=== PATIENT | male | born 1965 | race Caucasian/White ===

== ENCOUNTER → 2018-11-12 15:13 | Outpatient (CLI) | payer OTHER, SELFPAY ==
--- NOTE | 2018-11-12 15:27 | RAD_ITS ---
HISTORY: SOBShort of Breath/DyspneaRAD - Chest EXAM: XR Chest 2 Views: COMPARISON: None FINDINGS: # of images incl. paperwork: 2 Lungs are clear. Heart is not enlarged. Bones are normal. Pulmonary vascularity is distinct. No effusions. RAD/Chest PA and Lateral IMPRESSION: Normal. at 0023 Reported and signed by: Moy Sexton MD Electronically Signed: Moy Sexton MD at 0:22 EDT Tel , Service support ,
[2018-11-12 17:42] LABS: Absolute Lymphocyte Count 1.36 X10^3/ul (0.83-4.51); Absolute Neutrophil Count 2.3 X10^3/uL (2.0-7.7); Basophil# 0.02 X10^3/uL; Basophil% 0.5 % (0-1); Eosinophil# 0.15 X10^3/uL; Eosinophils% 3.5 % (0-5); Hematocrit 45.6 % (40-54); Hemoglobin 15.6 g/dl (13.0-16.5); Lymphocyte # 1.36 X10^3/ul (4.0); Lymphocyte % 31.5 % (19-41); Mean Corp Hgb Conc 34.2 g/gl (32-36); Mean Corpuscular Hgb 29.6 pg (27.0-32.0); Mean Corpuscular Volume 86.5 fL (80-94); Mean Platelet Vol. 9.6 fl (6.2-12.0); Monocyte# 0.45 X10^3/uL; Monocyte% 10.4 % (0-10); Neutrophil # 2.31 X10^3/uL (2.7-7.7); Neutrophil % 53.4 % (47-70); Platelet Count 175 K/mm3 (150-450); RBC Distribution Width CV 13.3 % (11.6-14.6); RBC Distribution Width SD 41.2 fl (35.1-43.9); Red Blood Count 5.27 M/mm3 (4.6-6.2); White Blood Count 4.3 K/mm3 (4.4-11.0)
[2018-11-12 17:50] LABS: POSITIVE COUNT NO; POSITIVE DIFFERENTIAL NO; POSITIVE MORPHOLOGY NO
[2018-11-12 17:56] LABS: Vitamin B12 850 pg/mL (211-911)
[2018-11-12 17:58] LABS: ALB/GLOB Ratio 1.1 RATIO (0.9-2.4); AST(SGOT) 34 U/L (15-37); Alanine Aminotransfer ALT/SGPT 61 U/L (16-61); Albumin, Serum 3.9 g/dL (3.2-5.0); Alkaline Phosphatase 81 U/L (45-117); Anion Gap 7 (5-15); BUN 12 mg/dL (7-18); BUN/Creat Ratio 11.9 RATIO (10-20); Calcium,Total 8.9 mg/dL (8.5-10.1); Chloride 108 mmol/L (98-107); Cholesterol 211 mg/dL (200); Creatinine, Serum 1.01 mg/dL (0.70-1.30); EST Glomerular Filtration Rate 82 mL/min (>60); Est Glom Filt Rate - Afr Amer 99 mL/min (>60); Globulin 3.5 g/dL (2.2-4.2); Glucose 87 mg/dL (74-106); High Density Lipoprotein 34 mg/dL; Potassium 3.7 mmol/L (3.5-5.1); Protein, Total 7.4 g/dL (6.4-8.2); Sodium Level 140 mmol/L (136-145); Thyroid Stim Hormone (TSH) 3.26 uIU/mL (0.358-3.74); Triglycerides 251 mg/dL; Very Low Density Lipoprotein 50 mg/dL (5-40)
== END ==
PROVIDERS: Family Provider Family Medicine; PCP Family Medicine; Referring Provider Family Medicine; Visit Provider Family Medicine
DX: R06.02 Shortness of breath (principal); I10 Essential (primary) hypertension; R53.83 Other fatigue; Z82.49 Family history of ischemic heart disease and other diseases of the circulatory system
CPT/HCPCS: 36415; 71046; 80053; 80061; 82306; 82607; 84443; 85025

== ENCOUNTER → 2018-11-20 11:16 | Outpatient (CLI) | payer OTHER, SELFPAY ==
--- NOTE | 2018-11-20 13:49 | STRESSREP ---
Stress Test Report Date: 11/20/2018 Procedure: Exercise tolerance test Indications: Shortness of breath Consent: Per the patient Procedure: The patient exercised on a Otis protocol for 7 minutes achieving a peak heart rate of 157 bpm (95 % predicted maximal heart rate) with a peak blood pressure 220/90 mmHg and a peak MET capacity of approximately 8.5 mET's. The baseline ECG demonstrated normal sinus rhythm, T wave inversions in leads III, aVF, V5, V6. The peak exercise ECG demonstrated no significant ST-T changes. [There were no cardiac dysrhythmias pretest, during exercise, or recovery]. The functional capacity was considered normal for age. The patient had no complaint of chest discomfort during exercise or recovery. The examination was discontinued secondary to shortness of breath. Impression: 1. Technically adequate (percent predicted maximal heart rate greater than 85%) exercise tolerance test 2. Peak exercise ECG with no significant exercise-induced EKG changes of ischemia. Patient did not have exercise induced chest pain. 3. [There were no cardiac dysrhythmias during exercise or recovery] This note was generated with [employer] software. It may contain incorrect words, spelling, and punctuation that were not noted in checking the note before signing.
== END ==
PROVIDERS: Family Provider Family Medicine; PCP Family Medicine; Referring Provider Family Medicine; Visit Provider Family Medicine
DX: R06.02 Shortness of breath (principal)
CPT/HCPCS: 93017

== ENCOUNTER → 2018-12-11 11:43 | Outpatient (CLI) | payer OTHER, SELFPAY ==
--- NOTE | 2018-12-11 11:47 | ECHOD_ITS ---
Reason For Study: SOB, fatigue Procedure This was a 2D Doppler, Color Flow transthoracic echocardiogram. Exam performed in department. Left Ventricle Normal LV size. Concentric left ventricular hypertrophy. The estimated ejection fraction is 60 %. No evidence for diastolic dysfunction. No regional wall motion abnormalities noted. Right Ventricle Normal RV size. Normal systolic function. Atria Normal left atrium. Normal right atrium. Mitral Valve There is no mitral valve stenosis. No mitral valve insufficiency. Tricuspid Valve There is no tricuspid stenosis. No tricuspid valve insufficiency. Unable to estimate RV systolic pressure due to insufficient tricuspid regurgitant envelope. Aortic Valve Trisinus/trileaflet aortic valve. There is no aortic stenosis. No aortic valve insufficiency. Pulmonic Valve There is no pulmonic valvular stenosis. No pulmonic valve insufficiency. Great Vessels Normal aortic root. Pericardium/Pleural No pericardial effusion. MMode/2D Measurements & Calculations LVIDd: 3.7 cm IVSd: 1.2 cm Ao root diam: 3.2 cm LVIDs: 2.1 cm LVPWd: 1.3 cm RVDd: 3.7 cm FS: 43.0 % LAV(MOD-bp): 37.9 ml LVAd ap4: 34.1 cm2 SV(MOD-sp4): 73.4 ml LAV(MOD-bp) Indexed: 15.9 ml/m2 EDV(MOD-sp4): 116.1 ml LAV(MOD-sp2): 33.7 ml EDV(sp4-el): 119.1 ml LAV(MOD-sp4): 42.7 ml LVAs ap4: 19.2 cm2 ESV(MOD-sp4): 42.7 ml ESV(sp4-el): 43.1 ml EF(MOD-sp4): 63.2 % EF(sp4-el): 63.8 % SV(sp4-el): 76.0 ml LA A4 area: 16.0 cm2 LA dimension(2D): 3.7 cm RA A4 area: 12.0 cm2 Doppler Measurements & Calculations MV E max drew: 52.9 cm/sec Lat Peak E' Drew: 4.4 cm/sec Med Peak E' Drew: 5.4 cm/sec MV A max drew: 69.5 cm/sec E/E' lat: 12.0 E/E' med: 9.7 MV E/A: 0.76 Ao V2 max: 113.0 cm/sec LV V1 max: 110.1 cm/sec PA V2 max: 92.0 cm/sec Ao max P.1 mmHg LV V1 max P.9 mmHg Interpretation Summary The estimated ejection fraction is 60 %. No evidence for diastolic dysfunction. Ordering Physician: Rodríguez Avery Referring Physician: Rodríguez Avery Performed By: Ying Kelly, ENOC
== END ==
PROVIDERS: Family Provider Family Medicine; PCP Family Medicine; Referring Provider Family Medicine; Visit Provider Family Medicine
DX: R06.02 Shortness of breath (principal)
CPT/HCPCS: 93306

== ENCOUNTER → 2019-02-18 14:29 | Outpatient (CLI) | payer OTHER, SELFPAY | PROVIDERS: Family Provider Family Medicine; PCP Family Medicine; Referring Provider Family Medicine; Visit Provider Family Medicine | DX: E55.9 Vitamin D deficiency, unspecified (principal) | CPT/HCPCS: 36415; 82306 ==

== ENCOUNTER 2019-06-15 16:24 | Emergency (ER) | payer OTHER, SELFPAY ==
[2019-06-15 16:24] VITALS: BP 157/97; PULSE 84; RESP 16; TEMP 36.2; O2SAT 96
[2019-06-15 16:25] VITALS: BP 157/97; PULSE 84; RESP 18; TEMP 36.2; O2SAT 96; BMI 43.7
--- NOTE | 2019-06-15 17:33 | MRI_ITS ---
STUDY: MRI BRAIN WITH AND WITHOUT CONTRAST REASON FOR EXAM: Male, 53 years old. HTN, PAPILLEDEMA,DURAL VENOUS THROMBUS -- loss of vision both eyes rt and gt; lt x 3 weeks TECHNIQUE: Standardized multiplanar fat and water weighted pulse sequences were obtained. IV Yes YES was administered for the contrast portion of the examination. COMPARISON: None. FINDINGS: A round, lobular, T2 hypointense, and intensely enhancing extra-axial mass is present in the midline floor of the anterior cranial fossa. It measures 4.4 cm anteroposterior by 3.9 cm transverse by 3.7 cm craniocaudal. It extends upwards through the anterior interhemispheric fissure. It exerts mass effect on both frontal lobes. It may extend through the cribriform plate. There is severe associated vasogenic edema radiating through the anterior halves of both cerebral hemispheres, and into the bilateral basal ganglia and internal capsules. There is severe compression of the frontal horns of the lateral ventricles. Location and signal characteristics are most consistent with a meningioma. The extent of edema in the cerebral hemispheres implies an aggressive/atypical lesion. Normal sella turcica, pituitary gland, infundibular stalk, optic chiasm and hypothalamus. Normal tectal plate and pineal gland. Normal midbrain, danny and medulla. Normal cerebellum. Normal basal cisterns. Normal bilateral temporal bones. Normal bilateral internal auditory canals. No demonstrated orbital abnormality, within the constraints of a routine brain study. Normal visualized paranasal sinuses. Normal calvarium and skull base. Normal visualized soft tissue structures. Normal visualized upper cervical spine. MRI/Brain W/WO Contrast IMPRESSION: Lobular extra-axial mass along the midline floor of the anterior cranial fossa, extending between the cerebral hemispheres and exerting mass effect on adjacent structures as described above. The lesion may extend through the cribriform plate. Severe associated vasogenic edema involving the anterior aspects of both cerebral hemispheres with compression of the frontal horns of the lateral ventricles. Overall, findings favor neoplasm such as meningioma. The extent of edema implies an aggressive/atypical lesion. Neurosurgery consultation is needed. N.B. : The above information has been verbally conveyed by Felipe Flores MD to Dr. Barbara Galvin MD, on 06/15/2019 19:34:28 (ET). Electronically Signed: Felipe Flores MD at 19:36 EST Tel , Service support ,
--- NOTE | 2019-06-15 17:33 | EKG12_ITS ---
Test Reason : Blood Pressure : / mmHG Vent. Rate : 062 BPM Atrial Rate : 062 BPM P-R Int : 166 ms QRS Dur : 102 ms QT Int : 398 ms P-R-T Axes : 034 -38 004 degrees QTc Int : 403 ms Normal sinus rhythm Left axis deviation Moderate voltage criteria for LVH, may be normal variant Poor R- wave Progression Abnormal ECG Confirmed by ROMAIN WINSLOW, MAGDY ([id number]), editorial clerk IKE GORE ([id number]) on 06/17/2019 9:56:48 AM Referred By: ALEX Confirmed By:MAGDY HOYOS MD
--- NOTE | 2019-06-15 17:34 | MRI_ITS ---
STUDY: EXAMINATION - MRV BRAIN WITHOUT CONTRAST REASON FOR EXAM: Male, 53 years old. HTN, PAPILLEDEMA,DURAL VENOUS THROMBUS -- loss of vision both eyes rt and amp;gt; lt x 3 weeks TECHNIQUE: 3D [id number]-ch-[id number] (TOF) imaging was performed in a 1.5 maico MRI scanner. COMPARISON: None. FINDINGS: Normal flow within the superior sagittal sinus. Normal flow within the paired internal cerebral veins, vein of Tej and straight sinus. Normal flow within the bilateral transverse and sigmoid sinuses. Normal flow within the bilateral jugular bulbs. MRI/MRV Head Without Contrast IMPRESSION: Normal unenhanced MRV of the brain. Electronically Signed: Felipe Flores MD at 19:39 EST Tel , Service support ,
--- NOTE | 2019-06-15 17:37 | ED.VIS.GEN ---
History of Present Illness Chief Complaint: Vision Prob Informant: Patient Onset: Weeks - 3 weeks Narrative: Patient was sent from ophthalmology office for further testing. Patient presented to them with a 3-week history of intermittent blurry vision from his right eye. He states when sitting at rest he has no difficulty. Approximate 20 seconds after getting up he will have blackout of his vision in the right periphery. After about 10 or 15 seconds it seems to resolve. He is also had intermittent headaches and his blood pressure has been quite elevated when he checks it at home. The cash analyst reportedly found bilateral papilledema with hemorrhages on today's exam. - Past Medical History (1) Hypertension Status: Chronic Past Medical History - Allergies and Home Meds Allergies/Adverse Reactions: Allergies No Known Allergies Allergy (Verified 06/15/19 16:27) Primary Care Physician: Rodríguez Avery MD [Primary Care Provider] - Doctors: Dr Evans, ophthalmology Prior records reviewed: Yes Smoking Status: Current every day smoker Review of Systems General: Denies: Chills, Fever Eyes: Reports: Visual changes - right ENT: Denies: Bilateral ear pain Cardiovascular: Denies: Chest pain Respiratory: Denies: Dyspnea, Cough Gastrointestinal: Denies: Abdominal pain, Nausea, Vomiting, Diarrhea Genitourinary: Denies: Dysuria Musculoskeletal: Denies: Extremity Pain Skin: Denies: Rash Neurological: Reports: Headache - Intermittent headaches. Denies: Weakness, Parasthesia Allergy: Denies: Uticaria Physical Exam Vital Signs/Narrative: Vital Signs Temp Pulse Resp BP Pulse Ox 06/15/19 16:25 97.2 F L 84 18 157/97 H 96 06/15/19 16:24 97.2 F L 84 16 157/97 H 96 Inital Vital Signs reviewed: Yes General: Well nourished, Well developed Head: Normocephalic Eyes: - - Pupils are currently dilated secondary to ophthalmology exam just prior to arrival ENT: Moist mucous membranes Neck: Supple Cardiovascular: Regular rate, Regular rhythm Respiratory: No distress, CTA bilaterally Abdomen: Soft, Nontender Skin: Normal color Neurological: Alert, Oriented x3, Normal Strength, Normal Sensation Psychological: Normal affect Diagnostic/Tx/Re-eval Impressions Brain MRI 06/15/19 17:34 IMPRESSION: Normal unenhanced MRV of the brain. Electronically Signed: Felipe Flores MD at 19:39 EST Tel , Service support , 06/15/19 17:33 Brain W/WO Contrast [MRI] Stat IMPRESSION: Lobular extra-axial mass along the midline floor of the anterior cranial fossa, extending between the cerebral hemispheres and exerting mass effect on adjacent structures as described above. The lesion may extend through the cribriform plate. Severe associated vasogenic edema involving the anterior aspects of both cerebral hemispheres with compression of the frontal horns of the lateral ventricles. Overall, findings favor neoplasm such as meningioma. The extent of edema implies an aggressive/atypical lesion. Neurosurgery consultation is needed. Laboratory Results 06/15/19 06/15/19 06/15/19 17:55 18:00 18:00 WBC 5.2 RBC 5.34 Hgb 16.1 Hct 47.9 MCV 89.7 MCH 30.1 MCHC 33.6 RDW Std Deviation 42.1 RDW Coeff of Lori 12.9 Plt Count 177 MPV 9.5 Immature Gran % (Auto) 0.400 Neut % (Auto) 52.3 Lymph % (Auto) 28.9 [place] % (Auto) 14.5 H Eos % (Auto) 2.9 Baso % (Auto) 1.0 Absolute Neuts (auto) 2.7 Absolute Lymphs (auto) 1.50 Nucleated RBC % 0 Sodium 142 Potassium 3.8 Chloride 110 H Carbon Dioxide 27.0 Anion Gap 5 BUN 16 Creatinine 1.00 Estim Creat Clear Calc 83.47 Est GFR (MDRD) Af Amer 100 Est GFR (MDRD) Non-Af 82 BUN/Creatinine Ratio 16.0 Glucose 78 Calcium 9.3 Urine Color Yellow Urine Clarity Clear Urine pH 5.0 Ur Specific [place] 1.025 Urine Protein Negative Urine Glucose (UA) Normal Urine Ketones Negative Urine Occult Blood Negative Urine Nitrite Negative Urine Bilirubin Negative Urine Urobilinogen Normal Ur Leukocyte Esterase Negative Urine RBC 0 SEEN Urine WBC 0 SEEN Ur Squamous Epith Cells 0 SEEN Calcium Oxalate Crystal 1+ Urine Bacteria 0 SEEN Urine Mucus 3+ - Medical Decision Making Test results are discussed with the patient. I did describe this mass and significant surrounding edema. I recommend transfer to a tertiary center with neurosurgery availability. I spoke with the hospitalist at [facility] in transfer line had spoken with neurosurgery. Patient is given dose of Decadron and Keppra and will be transferred to [facility] for further treatment. ED Disposition - Plan for ED Patient: Disposition: [facility] Diagnosis: Brain tumor Referrals: Rodríguez Avery MD [Primary Care Provider] -
[2019-06-15 18:10] LABS: Bacteria 0 SEEN /hpf (None Seen); Red Blood Cells-Urine 0 SEEN /hpf (0-5); Squamous Epithelial Cells - UA 0 SEEN /hpf (0-5); White Blood Cells 0 SEEN /hpf (0-5)
[2019-06-15 18:25] LABS: Absolute Neutrophil Count 2.7 X10^3/uL (2.0-7.7); Basophil# 0.05 X10^3/uL; Eosinophil# 0.15 X10^3/uL; Eosinophils% 2.9 % (0-5); Hematocrit 47.9 % (40-54); Hemoglobin 16.1 g/dL (13.0-16.5); Lymphocyte % 28.9 % (19-41); Mean Corp Hgb Conc 33.6 g/dL (32-36); Mean Corpuscular Hgb 30.1 pg (27.0-32.0); Mean Corpuscular Volume 89.7 fL (80-94); Mean Platelet Vol. 9.5 fl (6.2-12.0); Monocyte# 0.75 X10^3/uL; Monocyte% 14.5 % (0-10); NRBC Flagged by Analyzer 0 % (0-5); Neutrophil # 2.72 X10^3/uL (2.7-7.7); Neutrophil % 52.3 % (47-70); Platelet Count 177 K/mm3 (150-450); RBC Distribution Width CV 12.9 % (11.6-14.6); RBC Distribution Width SD 42.1 fl (35.1-43.9); Red Blood Count 5.34 M/mm3 (4.6-6.2); White Blood Count 5.2 K/mm3 (4.4-11.0)
[2019-06-15 18:31] LABS: Color, Urine Yellow (Yellow); Glucose, Dipstick Normal (Normal); Ketone-Dipstick Negative (Negative); Leukocyte Esterase-Dipstick Negative /ul (Negative); Nitrite-Dipstick Negative (Negative); Occult Blood-Urine Negative /ul (Negative); Protein-Dipstick Negative (Negative); Specific Gravity, Urine 1.025 (1.002-1.030); Urine Bilirubin Dipstick Negative (Negative); Urine Clarity Clear (Clear); Urine Urobilinogen Normal (Normal)
[2019-06-15 18:42] LABS: Anion Gap 5 (5-15); BUN 16 mg/dL (7-18); Calcium,Total 9.3 mg/dL (8.5-10.1); Chloride 110 mmol/L (98-107); EST Glomerular Filtration Rate 82 mL/min (>60); Est Glom Filt Rate - Afr Amer 100 mL/min (>60); Estimated Creatinine Clearance 83.47 ml/min; Glucose 78 mg/dL (74-106); Potassium 3.8 mmol/L (3.5-5.1); Sodium Level 142 mmol/L (136-145)
[2019-06-15 19:04] LABS: Calcium Oxalate Crystals Ur 1+ /hpf (<or=2+)
[2019-06-15 19:06] LABS: Mucous, Urine 3+ /hpf (<or=2+)
[2019-06-15 20:25] VITALS: BP 153/92; PULSE 64; RESP 14; TEMP 36.4; O2SAT 97
[2019-06-15] MEDS: dexAMETHasone 10 MG/ML Vial IV (21:36)
[2019-06-15] MEDS: levETIRAcetam IV 1,000 MG/100 ML BAG 400 MG IV (21:38)
[2019-06-15 23:16] VITALS: BP 148/95; PULSE 56; RESP 20; O2SAT 93
--- NOTE | 2019-06-15 23:17 | ED.RN ---
PATIENT DENIES ANY NEEDS AND DOESN'T HAVE ANY HEADACHE PAIN CURRENTLY.
--- NOTE | 2019-06-15 23:32 | ED.RN ---
VISUAL ACUITY NOT NEEDED PER DR. JOHNSON.
[2019-06-15 23:53] VITALS: BP 148/90; PULSE 57; RESP 20; O2SAT 93
== END 2019-06-16 00:05 | disposition short-term general hospital (02) ==
PROVIDERS: Emergency Provider Emergency Medicine; PCP Family Medicine
DX: D49.6 Neoplasm of unspecified behavior of brain (principal); I10 Essential (primary) hypertension; F17.200 Nicotine dependence, unspecified, uncomplicated
CPT/HCPCS: 70544; 70553; 80048; 81001; 85025; 93005; 96365; 96375; 99285; A9575; J7050; A4216

== ENCOUNTER 2019-06-26 18:15 | Inpatient (IN) | payer OTHER, SELFPAY ==
[2019-06-26 18:40] VITALS: BMI 43.0
[2019-06-26 21:49] VITALS: BP 132/74; PULSE 86; RESP 18; TEMP 37.1; O2SAT 96
[2019-06-26] MEDS: SODIUM CHLORIDE 1 GM TABLET 2 GM PO (22:22)
[2019-06-26] MEDS: Famotidine 20 MG Tablet PO (22:22)
[2019-06-26] MEDS: levETIRAcetam 500 MG Tablet PO (22:22)
[2019-06-27] MEDS: SODIUM CHLORIDE 1 GM TABLET 2 GM PO ×3 (05:40→20:55)
[2019-06-27] MEDS: Enoxaparin 40 MG/0.4 ML Syringe SC (06:02)
[2019-06-27 07:00] VITALS: BP 155/96; PULSE 84; RESP 18; TEMP 37.1; O2SAT 94
[2019-06-27 07:02] VITALS: O2SAT 96
[2019-06-27] MEDS: levETIRAcetam 500 MG Tablet PO ×2 (08:20→20:57)
[2019-06-27] MEDS: Famotidine 20 MG Tablet PO ×2 (08:20→20:57)
[2019-06-27] MEDS: dexAMETHasone 4 MG Tablet PO ×3 (08:20→17:20)
[2019-06-27] MEDS: Lisinopril 10 MG Tablet PO (08:20)
[2019-06-27] MEDS: amLODIPine 10 MG Tablet PO (08:21)
[2019-06-27] MEDS: Multivitamins,Therapeutic Tablet 1 TABLET PO (12:20)
--- NOTE | 2019-06-27 12:29 | PCM.HP.STD ---
Problem List (1) S/P craniotomy Status: Acute (2) History of resection of meningioma Status: Acute (3) Pulmonary nodule Status: Acute (4) Morbid obesity Status: Acute (5) COSTA (obstructive sleep apnea) Status: Acute (6) Tobacco dependence Status: Acute (7) Hypertension Status: Chronic History of Present Illness Date of Admission: 06/26/19 Chief Complaint: Debility secondary to recent craniotomy to resect meningioma The patient is a 53 year old M with a PMH of morbid obesity, obstructive sleep apnea, hypertension and tobacco dependence who was admitted to the Inpatient rehab unit at [facility] on 06/26/2019 for debility secondary to recent craniotomy on 06/17/2019 at [facility] for meningioma for greater than 3 hours of therapy daily with a goal of returning home at or near prior level of independence. The patient lives at home with his spouse and has 1 step to enter his one-story home. There is also a ramp. The patient was independent with ADL's, mobility and driving prior to hospitalization. He works full-time for the [employer]. He had a stress test at [facility] in October 2018 and this was negative for ischemia. His baseline EKG had T wave inversions in leads III, aVF, V5 and V6. Lipid panel on 06/15/2019 showed triglycerides elevated at 251, a total cholesterol of 211, LDL of 127 and an HDL low at 34. Vitamin D level in January 2019 was decreased to 29 and he was started on a vitamin D supplement. TSH was normal in October 2018. He is afebrile. The blood pressure has ranged from 132/74-150 7/97 since admission. Heart rate ranges from 56-86. He is maintaining an appropriate oxygen saturation on room air. The medication list was reviewed. He is on a Dexamethasone taper. Discussed with nursing and there are some concerns...he is impulsive and at times confused. I reviewed the PT, OT and speech therapy notes. DVT prophylaxis with Lovenox. Famotidine for GI prophylaxis Keppra 500 mg twice daily for seizure prophylaxis He has gained 62 lbs over the past year.....with no changes in his diet. Weight gain is being attributed to the tumor. TSH at [facility] was WNL Past Medical History Past Medical History (Chronic Problems): Chronic Problems Hypertension (Chronic) Allergies No Known Allergies Allergy (Verified 06/15/19 16:27) Home Medications: Ambulatory Orders Medication Instructions Recorded Amlodipine [Norvasc] 10 mg PO DAILY 06/15/19 Cholecalciferol (Vitamin D3) 2,000 unit PO DAILY 06/15/19 [Vitamin D3] Multivitamins,Therapeutic 1 tab PO DAILY 06/15/19 [Multivitamin] Famotidine [Pepcid] 20 mg PO BID 06/26/19 Guaifenesin [Robitussin] 5 ml PO Q4H PRN PRN 06/26/19 Lisinopril [Zestril] 10 mg PO DAILY 06/26/19 Ondansetron [Zofran Odt] 4 mg PO Q8H PRN PRN 06/26/19 Sodium Chloride 2 gm PO TID 06/26/19 levETIRAcetam tablet [Keppra 500 mg PO BID 06/26/19 tablet] Surgical History: - - Craniotomy May 2019 to resect a meningioma Psychiatric History: No pertinent psych hx Lives: Alone - dtr will be moving in with him when he is discharged home Smoking Status: Never smoker Tobacco Use: Non-smoker Alcohol: Rare Drugs: None - *Family History Maternal History Items: - - thyroid disease Review of Systems Constitutional: Denies: Chills, Fever, Weight Change Eyes: Reports: Blurred vision, Vision Change, - - he c/o blurred vision and sometimes loss of vision in the right eye which is intermittent. He has double vision in the left eye at times. Denies: Pain, Redness HEENT: Reports: Visual Changes. Denies: Difficulty Hearing, Difficulty Swallowing, Eye Pain, Head Aches, Hearing Changes, Sinus Congestion, Sinus Drainage, Sore Throat Cardiovascular: Reports: Edema - more likely than not related to IV NS and salt tabs and Dexamethasone, - - he has dizziness which he relates to the changes in vision. He denies vertigo.. Denies: Chest Pain, Chest Tightness, Palpitations Respiratory: Denies: Cough, Shortness of breath at rest, Sputum production Gastrointestinal: Denies: Abdominal Pain, Constipation, Diarrhea, Dyspepsia, Nausea, Vomiting Genitourinary: Denies: Dysuria Musculoskeletal: Denies: Joint Pain, Joint Tenderness Skin: Reports: - - he has some resolvng ecchymosis aroung the Left eye. Denies: Jaundice, Rash, Wounds Neurological: Denies: Slurred speech, Focal weakness, Headaches, Numbness, Tingling, Tremor, Seizures Psychiatric: Reports: - - He is having some visual hallucinations. Denies: Anxiety, Depression, Homicidal Ideations, Suicidal Ideations Endocrine: Reports: Change in Body Habitus - 62 pound weight gain over the past year with no change in diet, attributed to the tumor Hematologic/ Lymphatic: Denies: Easy Bruising, Easy Bleeding, Hx of blood clot VTE Information - Inpt Only VTE Present on Admission: No VTE Mechan Device Prophylaxis: Knee High RADHA Hose VTE Pharm Prophylaxis ordered?: Yes Patient Problems: Active and Suspected Problems S/P craniotomy (Acute) History of resection of meningioma (Acute) Pulmonary nodule (Acute) Morbid obesity (Acute) COSTA (obstructive sleep apnea) (Acute) Tobacco dependence (Acute) - Physical Exam Vitals/I&O's: Vital Signs Temp Pulse Resp BP Pulse Ox 98.8 F 84 18 155/96 H 96 06/27/19 07:00 06/27/19 07:00 06/27/19 07:00 06/27/19 07:00 06/27/19 07:02 Oxygen Delivery Method Room Air Weight: 291 lb 7.218 oz Body Mass Index (BMI) 43.0 General: Alert, Oriented x3, Cooperative, No apparent distress, Well developed, Well nourished, - - sitting in a chair watching TV when I enetered the room HEENT: Atraumatic, PERRLA, EOMI, Normocephalic Oral: Moist Mucosa, No Gingival or Mucosal Lesions/ Ulcerations Neck: Supple, No JVD, Negative Carotid Bruits, No Nodes, Trachea Midline Lungs: Normal air movement, Diminished - in the bases with a few coarse rales Cardiovascular: Regular rate, Regular Rhythm, Normal S1, Normal S2, No murmurs, No Ectopic Activity, No rub noted, No Gallop Abdomen: Bowel Sounds Present, Soft, Non Tender, Non-Distended, - - No guarding with palpation Extremities: No clubbing, No cyanosis, Capillary Refill Less than 3 Seconds, No Calf Tenderness, Edema, Peripheral Pulses Normal Skin: No rashes, No breakdown, - - The horseshoe incision in the anterior scalp is intact with no periwound erythema and no purulent discharge. Musculoskeletal: No Tenderness to Palpation of Joints or Extremities, No Muscle Wasting Neurological: Cranial nerves II-XII grossly intact, Neuro grossly intact - except for the changes in the vision Psych/Mental Status: Normal Affect, Appropriate, Hallucinations - visual Current Medications Acetaminophen (Tylenol) 650 mg PO Q4H PRN PRN PRN Reason: Pain Score 1-10/10 Amlodipine Besylate (Norvasc) 10 mg PO DAILY [facility] Last Admin: 06/27/19 08:21 Dose: 10 mg Documented by: Bisacodyl (Dulcolax) 10 mg RECTAL .PRN X 1 PRN PRN Reason: Constipation Cholecalciferol (Vitamin D) 2,000 unit PO DAILY [facility] Last Admin: 06/27/19 08:22 Dose: 2,000 unit Documented by: Dexamethasone (Decadron) 4 mg PO TIDCM [facility] Stop: 06/29/19 17:01 Last Admin: 06/27/19 12:20 Dose: 4 mg Documented by: Dexamethasone (Decadron) 4 mg PO BIDCM [facility] Stop: 07/04/19 17:01 Dexamethasone (Decadron) 2 mg PO TIDCM [facility] Stop: 07/09/19 17:01 Dexamethasone (Decadron) 2 mg PO BIDCM [facility] Stop: 07/14/19 17:01 Dexamethasone (Decadron) 2 mg PO DAILY@0800 [facility] Stop: 07/19/19 08:01 Enoxaparin Sodium (Lovenox) 40 mg SC DAILY@0600 [facility] Last Admin: 06/27/19 06:02 Dose: 40 mg Documented by: Famotidine (Pepcid) 20 mg PO BID [facility] Last Admin: 06/27/19 08:20 Dose: 20 mg Documented by: Guaifenesin (Robitussin) 5 ml PO Q4H PRN PRN PRN Reason: COUGH Levetiracetam (Keppra Tablet) 500 mg PO BID [facility] Last Admin: 06/27/19 08:20 Dose: 500 mg Documented by: Lisinopril (Zestril) 10 mg PO DAILY [facility] Last Admin: 06/27/19 08:20 Dose: 10 mg Documented by: Magnesium Hydroxide (Milk Of Magnesia) 30 ml PO .PRN X 1 PRN PRN Reason: Constipation Multivitamins (Multivitamin) 1 tablet PO DAILY@1200 [facility] Last Admin: 06/27/19 12:20 Dose: 1 tablet Documented by: Ondansetron HCl (Zofran Odt) 4 mg PO Q8H PRN PRN PRN Reason: NAUSEA Senna/Docusate Sodium (Senokot-S, Melly-Colace) 2 tablet PO BID [facility] Last Admin: 06/27/19 08:21 Dose: Not Given Documented by: Sodium Chloride (Sodium Chloride) 2 gm PO TID [facility] Stop: 06/29/19 06:01 Last Admin: 06/27/19 05:40 Dose: 2 gm Documented by: Assessment/Plan All Active Problems S/P craniotomy (Acute) History of resection of meningioma (Acute) Pulmonary nodule (Acute) Morbid obesity (Acute) COSTA (obstructive sleep apnea) (Acute) Tobacco dependence (Acute) Impressions 1. debility secondary to craniotomy to remove meningioma. Had extensive edema. Prior to the removal of the tumor he had floaters in the L eye and papilledema. 2. S/P piecemeal resection of meningioma at [facility] 3. COSTA 4. HTN 5. morbid obesity - 62 lb weight gain in the last year with no change in diet - attributed to the Tumor 6. FH of thyroid disease Follow-up with Dr. Dorie Avila at [facility] on 07/02/2019 at 1:45 PMPLAN PT for gait stability OT for ADL's ST for evaluation Analgesics as needed Bowel protocol Fall precautions Assess for Anxiety/Depression GI prophylaxis with famotidine 20 mg p.o. twice daily DVT prophylaxis with Lovenox Follow-up with Dr. Rodríguez Avery following DC from rehab A total of 60 minutes was spent in the care of this patient. Reviewing all the notes from [facility], taking a hx and examining the pt and completing the H&P and the post admission evaluation form. Code Visit Inpatient E&M: 64120 Init Hosp L3
--- NOTE | 2019-06-27 14:52 | REHABEVAL_ITS ---
Admission Information Primary Diagnosis:: Debility secondary to craniotomy for resection Status Changes from Prescreening?: No changes Identified Actual Problem List:: Falls, Skin Intergrity, Cognitve Impr/Memory Loss, Alteration in Sleep, Mobility Impaired, Self Care Deficit, Alteration-Leisure Activ. Potential Problem List:: DVT, Bleeding, Infection, UTI, Aspiration, Falls, Skin Integrity, Depression Risk of Complications DVT: LMWH, RADHA Hose Bleeding: Monitor Lab Values, Nursing to Teach Precautions for anti-coagulation therapy., Wound, if applicable, to be assessed every shift., Stroke patients as sessed for lethargy or change in status. Infection: Clinical Staff to Monitor for S/S of infection:, S/S of infection include fever, redness, warmth, etc. Urinary Tract Infection: Monitor for frequency, burning, discomfort, or incontinence., Nursing will obtain urine sample for urinalysis and C&S when ordered. Aspiration: Clinical staff will monitor for coughing, drooling, congestion., Speech will evaluate swallowing and dsyphasia., Nursing will monitor patient swallowing during meals. Falls: Patient will be evaluated for Fall Precautions, Patient will be placed on Fall Precautions as indicated per protocol. Skin Breakdown: Nursing will assess skin daily using assessment tool., Nursing will place on Skin Breakdown Precautions as indicated. Pain: Clinical staff will assess patient's pain level per protocol., Medications will be given, if needed, and the pain level reassessed., Other methods: Massage, distraction, decrease stimulus, etc. used PRN. Plan of Care Patient requires physician specializing in physical medicine and rehab oversight to provide close medical supervision of rehab issues including: Pain Management, Sleep Problems, Bowel and Bladder, Medical and co-morbidity Management, DVT prophylaxis, Rehabilitation Leadership, Coordination of treatment team Patient needs Physical Therapy: For a minimum of 1 hour, At least 5 out of 7 days Patient needs Physical Therapy to improve:: Mobility, Mobility, Mobility, Strengthening, Transfers, Stretching, ROM, Endurance, Stairs, Gait, Balance Patient needs Occupational Therapy: For a minimum of 1 hour, At least 5 out of 7 days Patient needs Occupational Therapy to improve ADL's incl.: Eating, Grooming, Bathing, Dressing, Toileting, Toilet transfers, Community Reintegration, Higher functioning activities, Household tasks, Adaptive Equipment, Splinting, Other activities as determined Patient requires speech therapy: For a minimum of 1 hour, At least 5 out of 7 days Patient requires speech therapy for: Swallowing, Cognition, Language Skills, Compensatory Strategies Patient requires 24/ Rehabilitation Nursing for: Pain Issues, Identifying and preventing risk factors, Monitoring and reporting current medical conditions, Assisting with ambulation, transfer, and all ADL's, Teaching patients about disease process and medications, Family teaching, Providing safe environment, Bowel and Bladder Issues, Skin integrity, Medication Management Patient needs Four Slide Machine Setter/ Case Management for: Discharge Planning, Arranging Home Equipment or Services, Family Interventions Patient needs Dietary and Nutrition Services for: Adequate Nutrition, Nutritional Supplements, Nutritional Education Goals Patient will remain: free from falls, or injury at time of discharge. Patient will perform bed mobility at: MOD I level of assist. Patient will complete transfers from bed to chair at: MOD I level of assist. Patient will ambulate: 100 feet, with MOD I assist, with LRD Patient will complete upper body dressing at: MOD I level of assist. Patient will complete lower body dressing at: MOD I level of assist. Patient will complete toileting at: MOD I level of assist. Patient will perform bathing at: MOD I level of assist. Patient will complete grooming at: MOD I level of assist. Patient will complete home management skills at: MOD I level of assist. Patient will achieve: 12 stairs, at MOD I assist Patient will have pain level of: of 3 or less Patient's skin will: remain intact, free from infection. Patient will receive: adequate nutrition. Discharge Planning Pt Prognosis for Sig. Practical Improv. w/in Reasonable Time: Good Estimated Length of stay (days): 14 Anticipated D/C Destination: Home with Outpt Therapy
[2019-06-27 19:38] VITALS: BP 127/82; PULSE 92; RESP 20; TEMP 36.7; O2SAT 95
[2019-06-27] MEDS: guaiFENesin/Codeine 5 ML UDC 10 ML PO (20:56)
[2019-06-27] MEDS: guaiFENesin 600 MG Tablet PO (20:57)
[2019-06-28] MEDS: Acetaminophen 325 MG Tablet 650 MG PO ×3 (01:59→11:47)
[2019-06-28 06:05] LABS: Hematocrit 37.6 % (40-54); Hemoglobin 12.4 g/dL (13.0-16.5); Mean Corpuscular Hgb 29.7 pg (27.0-32.0); Mean Corpuscular Volume 90.2 fL (80-94); Mean Platelet Vol. 9.8 fl (6.2-12.0); Platelet Count 142 K/mm3 (150-450); RBC Distribution Width CV 13.5 % (11.6-14.6); Red Blood Count 4.17 M/mm3 (4.6-6.2); White Blood Count 10.1 K/mm3 (4.4-11.0)
[2019-06-28 06:29] LABS: ALB/GLOB Ratio 0.8 RATIO (0.9-2.4); AST(SGOT) 57 U/L (15-37); Alanine Aminotransfer ALT/SGPT 139 U/L (16-61); Albumin, Serum 2.8 g/dL (3.2-5.0); Alkaline Phosphatase 69 U/L (45-117); Anion Gap 3 (5-15); BUN 14 mg/dL (7-18); BUN/Creat Ratio 18.7 RATIO (10-20); Calcium,Total 8.1 mg/dL (8.5-10.1); Chloride 107 mmol/L (98-107); Creatinine, Serum 0.75 mg/dL (0.70-1.30); EST Glomerular Filtration Rate 115 mL/min (>60); Est Glom Filt Rate - Afr Amer 139 mL/min (>60); Estimated Creatinine Clearance 111.29 ml/min; Globulin 3.3 g/dL (2.2-4.2); Glucose 109 mg/dL (74-106); Magnesium 2.5 mg/dL (1.6-2.6); Phosphorus 3.1 mg/dL (2.5-4.9); Potassium 3.8 mmol/L (3.5-5.1); Protein, Total 6.1 g/dL (6.4-8.2); Sodium Level 140 mmol/L (136-145); T4 Free Direct 0.97 ng/dL (0.76-1.46); Thyroid Stim Hormone (TSH) 0.72 uIU/mL (0.358-3.74)
[2019-06-28] MEDS: SODIUM CHLORIDE 1 GM TABLET 2 GM PO ×3 (06:43→20:33)
[2019-06-28] MEDS: Enoxaparin 40 MG/0.4 ML Syringe SC (06:43)
[2019-06-28 07:08] VITALS: BP 143/84; PULSE 67; RESP 18; TEMP 36.6; O2SAT 95
[2019-06-28 07:18] VITALS: O2SAT 95
[2019-06-28] MEDS: Famotidine 20 MG Tablet PO ×2 (07:58→20:33)
[2019-06-28] MEDS: Lisinopril 10 MG Tablet PO (07:58)
[2019-06-28] MEDS: guaiFENesin 600 MG Tablet PO ×2 (07:58→20:33)
[2019-06-28] MEDS: amLODIPine 10 MG Tablet PO (07:58)
[2019-06-28] MEDS: dexAMETHasone 4 MG Tablet PO ×3 (07:58→17:25)
[2019-06-28] MEDS: levETIRAcetam 500 MG Tablet PO ×2 (07:59→20:34)
[2019-06-28] MEDS: Multivitamins,Therapeutic Tablet 1 TABLET PO (11:47)
--- NOTE | 2019-06-28 14:00 | NURSING ---
Neuro status remains unchanged but patient has complained of a headache today and Dr. Hatfield aware. New order for pain medication and patient aware.
--- NOTE | 2019-06-28 14:22 | PN_ITS ---
Progress Note Afebile VSS Maintaining appropriate oxygen saturation on RA Discussed with nursing - no problems that need addressed. He had a MONAHAN today but, it resolved with Tylenol. Reviewed the PT/OT/ST notes Medication list reviewed. Currently on a Dexamethasone taper All lab was personally reviewed. White blood cell count is within normal limits at 10.1. Hemoglobin is 12.4 and the platelets are mildly decreased at 142. The MCV and MCH are within normal limits. The BMP is unremarkable. Fasting blood sugar was 109-more likely than not mildly increased secondary to dexamethasone. The corrected calcium is within normal limits. AST and ALT are mildly elevated at 57 and 139 respectively and this is possibly secondary to recent surgery. TS H and free T4 are within normal limits. He tells me that the Robitussin with Codeine helped for a few hours and then he started coughing again. He admits to having a lot of post nasal drip. Alert and oriented x3 Lungs-still diminished in the bases with coarse crackles bilaterally but starting to cough up secretions somewhat with Mucinex Heart-regular rate and rhythm, no murmur, no gallop, no rub Abdomen-obese, soft, nontender, nondistended, bowel sounds in all 4 quadrants, no guarding with palpation Small amount of ankle edema bilaterally, RADHA hose in place Incision is coapted well with no monica-incisional erythema and no discharge. Small amount of dried blood over the clive. Impressions 1. Status post craniotomy for excision of meningioma 2. Visual disturbance likely secondary to swelling from recent craniotomy 3. Occasional cephalgia-relieved with Tylenol 4. Atelectasis with productive cough and postnasal drainage Will add Atrovent nasal spray to the current drug regimen. Continue incentive spirometry and PEP therapy Has an appointment with the surgeon this week and has a friend that will take him. We will have clive removed at that time. Continue PT/OT/ST. Code Visit Inpatient E&M: 23572 Subs Hosp L2
[2019-06-28] MEDS: oxyCODONE 5 MG Tablet PO (17:30)
[2019-06-28 19:16] VITALS: BP 157/84; PULSE 73; RESP 20; TEMP 37.1; O2SAT 95
[2019-06-28] MEDS: Ipratropium Bromide 0.06% NASAL SPRAY 2 SPRAY NASAL (20:35)
[2019-06-28] MEDS: guaiFENesin/Codeine 5 ML UDC 10 ML PO (20:49)
[2019-06-29] MEDS: SODIUM CHLORIDE 1 GM TABLET 2 GM PO (05:00)
[2019-06-29] MEDS: Enoxaparin 40 MG/0.4 ML Syringe SC (05:01)
[2019-06-29] MEDS: Ipratropium Bromide 0.06% NASAL SPRAY 2 SPRAY NASAL ×3 (05:01→21:16)
[2019-06-29] MEDS: Acetaminophen 325 MG Tablet 650 MG PO (05:10)
[2019-06-29] MEDS: guaiFENesin 10 ML UDC (200MG/10ML) 5 ML PO (06:05)
[2019-06-29 07:41] VITALS: O2SAT 90
[2019-06-29 08:01] VITALS: BP 150/88; PULSE 59; RESP 16; TEMP 36.8; O2SAT 93
[2019-06-29] MEDS: amLODIPine 10 MG Tablet PO (08:01)
[2019-06-29] MEDS: guaiFENesin 600 MG Tablet PO ×2 (08:01→21:17)
[2019-06-29] MEDS: levETIRAcetam 500 MG Tablet PO ×2 (08:01→21:17)
[2019-06-29] MEDS: Famotidine 20 MG Tablet PO ×2 (08:01→21:17)
[2019-06-29] MEDS: Senna/Docusate Sodium 1 Tablet 2 TABLET PO (08:01)
[2019-06-29] MEDS: Lisinopril 10 MG Tablet PO (08:01)
[2019-06-29] MEDS: dexAMETHasone 4 MG Tablet PO ×3 (08:01→17:13)
--- NOTE | 2019-06-29 10:17 | CASEMGMT ---
Social Work IDT met with pt for team meeting. pt is CGA for transfers, CGA 4 steps with one HR and cane, walking 120ft w cane SBA, wears hat to assist with vision glare, SBA for all ADLs. ST is working with pt on coughing, is on Mech Soft, thin diet, small bites/sips, will do cognitive eval today. Pt will f/u with neurosurgeon on 07/02. Explained insurance coverage w NRD 06/29 and continued stay is not guaranteed. will continue to follow. Giovana Myrick, social work product marketing intern Isabel Givens, MOLD PRESSER CAREGIVER ASSISTED LIVING
[2019-06-29] MEDS: Multivitamins,Therapeutic Tablet 1 TABLET PO (11:55)
--- NOTE | 2019-06-29 12:12 | PN_ITS ---
Progress Note Patient was seen in his room on TEAM rounds today. Afebile VSS Maintaining appropriate oxygen saturation on RA Oral intake is good Discussed with nursing - no problems that need addressed Reviewed the PT/OT/ST notes Medication list reviewed. the Atrovent nasal spray is helping to dry the PND up and he is sleeping better. The PEP and mucinex are also helping him to bring up secretions. He would like to get rid of the Robitussin AC because he has to go to a doctor's appt on and he gets very car sick and Codeine makes it worse. No CP and no SOB. He continues to have problems with his vision which exacerbates his motion sickness. Denies nausea and vomiting at the current time. His last bowel movement was yesterday and he denies constipation. Alert and oriented x3, no apparent distress, sitting in his recliner eating lunch when I examined him He has a loose productive cough Lungs-much better air exchange in the bases with a few coarse crackles, no wheezing, not tachypneic, no conversational dyspnea Heart-regular rate and rhythm, no gallop, no rub, normal S1, normal S2 Abdomen-soft, nontender, nondistended, normal bowel sounds in all 4 quadrants The incision is clean and the margins are coapted well there is no discharge and no monica-incisional erythema. Impressions 1. Debility secondary to craniotomy with excision of a meningioma. Continues to have vision problems but they come and go and seem to increase with fatigue. 2. Obstructive sleep apnea - not on treatment. We will broach this subject aga in with him prior to DC. 3. Hypertension-mildly uncontrolled, may be related to the Dexamethasone. Will increase the Lisinopril to 10 mg Q AM and 5 mg at HS daily continue with therapy Follow up with neurosurgeon Saturday Code Visit Inpatient E&M: 55806 Subs Hosp L2
--- NOTE | 2019-06-29 13:37 | CASEMGMT ---
Social Work Reviewed and agreed with social work international accounting manager documentation on this date. Isabel Givens, YOUTUBER MIDWIFE PRACTITIONER
[2019-06-29 19:44] VITALS: BP 146/82; PULSE 84; RESP 16; TEMP 36.7; O2SAT 98
[2019-06-29] MEDS: Lisinopril 5 MG Tablet PO (21:17)
[2019-06-30] MEDS: guaiFENesin 10 ML UDC (200MG/10ML) 5 ML PO ×2 (03:47→13:09)
[2019-06-30] MEDS: Ipratropium Bromide 0.06% NASAL SPRAY 2 SPRAY NASAL ×3 (06:04→21:45)
[2019-06-30] MEDS: Enoxaparin 40 MG/0.4 ML Syringe SC (06:04)
[2019-06-30] MEDS: Ondansetron ODT 4 MG Tablet PO (06:05)
[2019-06-30 07:19] VITALS: O2SAT 92
[2019-06-30 08:24] VITALS: BP 141/80; PULSE 73; RESP 16; TEMP 36.9; O2SAT 94
[2019-06-30] MEDS: levETIRAcetam 500 MG Tablet PO ×2 (08:28→21:45)
[2019-06-30] MEDS: guaiFENesin 600 MG Tablet PO ×2 (08:28→21:45)
[2019-06-30] MEDS: Famotidine 20 MG Tablet PO ×2 (08:28→21:45)
[2019-06-30] MEDS: amLODIPine 10 MG Tablet PO (08:28)
[2019-06-30] MEDS: Lisinopril 10 MG Tablet PO (08:28)
[2019-06-30] MEDS: dexAMETHasone 4 MG Tablet PO ×2 (08:28→17:15)
[2019-06-30] MEDS: Multivitamins,Therapeutic Tablet 1 TABLET PO (12:02)
--- NOTE | 2019-06-30 13:13 | CASEMGMT ---
Addendum entered by Isabel Givens 07/03/19 15:45: Attempted to visit pt but unavailable. Pt satisfied with SW providing financial and counseling resources in room for pt to review. Will contact SW with any questions. Pt appreciative. Original Note: Social Work Pt requested to speak with social media community manager, pt expressed some concerns with being able to return to work, managing his finances, and difficulties with vision. Validated feelings, encouraged to continue with positive attitude, and provided emotional support. Discussed multiple resources that would be available for pt. Pt requested social work to re-visit at the end of the week and review resources mentioned. Pt in good spirits, will continue to follow. iGovana Myrick, social work graphics intern Isabel Givens, [employer] REMOVAL SUPERVISOR LEATHER CASE FINISHER
[2019-06-30 19:38] VITALS: BP 136/82; PULSE 96; RESP 20; TEMP 37.1; O2SAT 94
[2019-06-30] MEDS: Lisinopril 5 MG Tablet PO (21:45)
[2019-07-01] MEDS: Enoxaparin 40 MG/0.4 ML Syringe SC (05:38)
[2019-07-01] MEDS: Ipratropium Bromide 0.06% NASAL SPRAY 2 SPRAY NASAL ×3 (05:38→20:33)
[2019-07-01] MEDS: Scopolamine 1mg/72hr Patch 1 PATCH TD (08:36)
[2019-07-01] MEDS: dexAMETHasone 4 MG Tablet PO ×2 (08:36→17:21)
[2019-07-01] MEDS: amLODIPine 10 MG Tablet PO (08:37)
[2019-07-01] MEDS: Famotidine 20 MG Tablet PO ×2 (08:37→20:32)
[2019-07-01] MEDS: Lisinopril 10 MG Tablet PO (08:37)
[2019-07-01] MEDS: guaiFENesin 600 MG Tablet PO ×2 (08:37→20:34)
[2019-07-01] MEDS: levETIRAcetam 500 MG Tablet PO ×2 (08:37→20:32)
[2019-07-01 09:31] VITALS: BP 155/89; PULSE 72; RESP 16; TEMP 36.4; O2SAT 94
[2019-07-01] MEDS: Multivitamins,Therapeutic Tablet 1 TABLET PO (12:03)
[2019-07-01 19:25] VITALS: BP 157/94; PULSE 88; RESP 18; TEMP 36.6; O2SAT 94
[2019-07-01] MEDS: Lisinopril 5 MG Tablet PO (20:30)
[2019-07-02] MEDS: Ipratropium Bromide 0.06% NASAL SPRAY 2 SPRAY NASAL ×2 (04:59→21:32)
[2019-07-02] MEDS: Enoxaparin 40 MG/0.4 ML Syringe SC (05:00)
[2019-07-02 07:43] VITALS: BP 138/80; PULSE 62; RESP 16; TEMP 36.4; O2SAT 97
[2019-07-02] MEDS: dexAMETHasone 4 MG Tablet PO ×2 (09:05→17:10)
[2019-07-02] MEDS: Famotidine 20 MG Tablet PO ×2 (09:05→21:33)
[2019-07-02] MEDS: amLODIPine 10 MG Tablet PO (09:05)
[2019-07-02] MEDS: levETIRAcetam 500 MG Tablet PO (09:05)
[2019-07-02] MEDS: Lisinopril 10 MG Tablet PO (09:05)
[2019-07-02] MEDS: guaiFENesin 600 MG Tablet PO ×2 (09:05→21:32)
[2019-07-02] MEDS: Multivitamins,Therapeutic Tablet 1 TABLET PO (11:57)
[2019-07-02 21:28] VITALS: BP 117/76; PULSE 69; RESP 18; TEMP 36.6; O2SAT 95
[2019-07-02] MEDS: Lisinopril 5 MG Tablet PO (21:33)
[2019-07-03] MEDS: Ipratropium Bromide 0.06% NASAL SPRAY 2 SPRAY NASAL ×3 (05:00→22:01)
[2019-07-03] MEDS: Enoxaparin 40 MG/0.4 ML Syringe SC (05:00)
[2019-07-03 08:01] VITALS: BP 109/73; PULSE 60; RESP 18; TEMP 36.6; O2SAT 93
[2019-07-03] MEDS: Famotidine 20 MG Tablet PO ×2 (08:12→22:01)
[2019-07-03] MEDS: amLODIPine 10 MG Tablet PO (08:12)
[2019-07-03] MEDS: guaiFENesin 600 MG Tablet PO ×2 (08:12→22:01)
[2019-07-03] MEDS: Lisinopril 10 MG Tablet PO (08:12)
[2019-07-03] MEDS: dexAMETHasone 4 MG Tablet PO ×2 (08:13→17:35)
[2019-07-03] MEDS: Multivitamins,Therapeutic Tablet 1 TABLET PO (11:57)
[2019-07-03 22:00] VITALS: BP 144/77; PULSE 62; RESP 18; TEMP 36.8; O2SAT 96
[2019-07-03] MEDS: Lisinopril 5 MG Tablet PO (22:02)
[2019-07-04] MEDS: Ipratropium Bromide 0.06% NASAL SPRAY 2 SPRAY NASAL ×3 (05:53→21:11)
[2019-07-04] MEDS: Enoxaparin 40 MG/0.4 ML Syringe SC (05:54)
[2019-07-04] MEDS: Famotidine 20 MG Tablet PO ×2 (08:17→21:12)
[2019-07-04] MEDS: guaiFENesin 600 MG Tablet PO ×2 (08:17→21:12)
[2019-07-04] MEDS: amLODIPine 10 MG Tablet PO (08:17)
[2019-07-04] MEDS: dexAMETHasone 4 MG Tablet PO ×2 (08:17→16:14)
[2019-07-04] MEDS: Lisinopril 10 MG Tablet PO (08:17)
[2019-07-04 08:58] VITALS: BP 109/69; PULSE 73; RESP 16; TEMP 36.6; O2SAT 96
--- NOTE | 2019-07-04 10:35 | PCM.PN.BLA ---
Progress Note Afebile VSS Maintaining appropriate oxygen saturation on RA Oral intake is good Discussed with nursing - no problems that need addressed Reviewed the PT/OT/ST notes Medication list reviewed. No complaints. Has been ambulating in the halls with a cane now. No difficulty swallowing. He is having frequent emotional swings with periodic crying. He was reassured this will resolve with time. It is likely related to surgery. No difficulty with bowel function PHYSICAL EXAM: GENERAL: alert, oriented X 3, Cooperative, NAD ORAL: moist mucosa, no mucosal lesions NECK: No JVD, supple, trachea midline LUNGS: CTA, symmetric chest expansion HEART: RRR, Normal S1 and S2, no rub, no gallop ABDOMEN: soft, NT, ND, BS present, no guarding with palpation EXTREMITIES: no edema, no cyanosis, no calf tenderness SKIN: No rashes, no breakdown NEUROLOGIC: still having problems with vision PSYCH: appropriate, normal affect at the time of my exam, pleasant 1. Debility secondary to recent craniotomy for resection of meningioma 2. Vision disturbance secondary to meningioma and recent resection 3. Pseudobulbar affect-more likely than not secondary to recent meningioma and resection of meningioma 4. Normochromic normocytic anemia-more likely than not secondary to blood loss with surgery. Continue therapy. STROKE Vital Signs/Narrative: Vital Signs Temp Pulse Resp BP Pulse Ox 07/04/19 08:58 98 F 73 16 109/69 96 Code Visit Inpatient E&M: 56631 Subs Hosp L1
--- NOTE | 2019-07-04 10:41 | NURSING ---
Patient returned from ophthalmology appt with Dr. Evans. Per patient he stated that it is too soon for him to regain normal vision. Dr. Evans stated that it takes months and that he just needs time to heal. Patient stated he felt better and had more of a piece of mind.
[2019-07-04] MEDS: Multivitamins,Therapeutic Tablet 1 TABLET PO (12:50)
[2019-07-04 19:24] VITALS: BP 139/75; PULSE 97; RESP 18; TEMP 36.8; O2SAT 97
[2019-07-04] MEDS: Lisinopril 5 MG Tablet PO (21:12)
[2019-07-05] MEDS: Enoxaparin 40 MG/0.4 ML Syringe SC (05:18)
[2019-07-05] MEDS: Ipratropium Bromide 0.06% NASAL SPRAY 2 SPRAY NASAL ×3 (05:18→21:28)
[2019-07-05 07:15] VITALS: BP 151/87; PULSE 68; RESP 16; TEMP 36.6; O2SAT 97
[2019-07-05] MEDS: guaiFENesin 10 ML UDC (200MG/10ML) 5 ML PO (07:43)
[2019-07-05] MEDS: dexAMETHasone 4 MG Tablet 2 MG PO ×3 (08:54→16:24)
[2019-07-05] MEDS: Famotidine 20 MG Tablet PO ×2 (08:55→21:29)
[2019-07-05] MEDS: Lisinopril 10 MG Tablet PO (08:55)
[2019-07-05] MEDS: guaiFENesin 600 MG Tablet PO ×2 (08:55→21:29)
[2019-07-05] MEDS: amLODIPine 10 MG Tablet PO (08:55)
[2019-07-05] MEDS: Multivitamins,Therapeutic Tablet 1 TABLET PO (13:13)
[2019-07-05 19:43] VITALS: BP 132/74; PULSE 94; RESP 16; TEMP 36.8; O2SAT 94
[2019-07-05] MEDS: Lisinopril 5 MG Tablet PO (21:29)
[2019-07-05] MEDS: Senna/Docusate Sodium 1 Tablet 2 TABLET PO (21:29)
[2019-07-06] MEDS: Enoxaparin 40 MG/0.4 ML Syringe SC (05:00)
[2019-07-06] MEDS: Ipratropium Bromide 0.06% NASAL SPRAY 2 SPRAY NASAL ×3 (05:00→21:40)
[2019-07-06 08:11] VITALS: BP 130/85; PULSE 57; RESP 16; TEMP 36.3; O2SAT 96
[2019-07-06] MEDS: dexAMETHasone 4 MG Tablet 2 MG PO ×3 (08:21→16:47)
[2019-07-06] MEDS: Lisinopril 10 MG Tablet PO (08:21)
[2019-07-06] MEDS: Famotidine 20 MG Tablet PO ×2 (08:22→21:40)
[2019-07-06] MEDS: guaiFENesin 600 MG Tablet PO ×2 (08:22→21:40)
[2019-07-06] MEDS: amLODIPine 10 MG Tablet PO (08:22)
--- NOTE | 2019-07-06 11:27 | CASEMGMT ---
Social Work IDT met with patient, mother and brother for Team Meeting. Discussed patient's progress in therapy. Pt is walking with a cane at CGA 165 ft, SBA to CGA for transfers, sup. to SBA for all ADLs. Pt's vision is getting better. Had eye appt 07/04 and stated too soon for vision to clear up and scheduled f/u appt 08/19. ST is working with pt on word finding and recall issues, attention, distractibility and some coughing with foods. Pt had clive removed and healing well. Explained insurance update 07/06 and continued stay is not guaranteed. IDT recommending continued therapy to improve cognition. Pt will DC home with daughter. The goal is for pt to return full-time to work. Pt had no questions on resources SW provided. Will continue to follow. Isabel Givens, JAYE HUGHESW
[2019-07-06] MEDS: Multivitamins,Therapeutic Tablet 1 TABLET PO (11:39)
--- NOTE | 2019-07-06 12:50 | PCM.PN.BLA ---
Progress Note Afebile VSS-the blood pressure is well controlled Maintaining appropriate oxygen saturation on RA Oral intake is good. Has to remind himself to adhere to the instructions given to him by the ST. He is coughing much less with eating now. He is also able to sleep at night....the Atrovent nasal spray has helped with the Post nasal drainage. Discussed with nursing - no problems that need addressed Reviewed the PT/OT/ST notes Medication list reviewed. He is no longer on Keppra and salt tabs. He is still on a Dexamethasone taper. He no longer has diplopia. He still has periodic blurring of vision and he associates this with his pills. No N/V/abd pain/CP/SOB. Bowel function is good. Has been able to watch TV this weekend for the first time without a big blur of the screen. He saw the recyclable materials collector who reassured him that his vision will continue to change probably over the next 6 months. He made an appointment for team in July so that he can examine his eyes periodically. Awake, alert, oriented X 3. Pleasant and appropriate. Having some trouble with word finding but is getting better with circumlocution and can make himself understood. Lungs - CTA HRRR with no MM, no gallop and no ectopy abd - soft, NT, ND normal BS's in all quadrants no ankle edema Impressions 1. debility due to craniotomy to excise a meningioma. 2. diplopia - resolved 3. pseudobulbar affect 4. NN anemia - more likely than not due to blood loss at the time of surgery recheck lab in the AM since the salt tabs have been discontinued All questions were answered. Continue with therapy. Will need ST post DC. Code Visit Inpatient E&M: 11254 Subs Hosp L2
[2019-07-06 19:31] VITALS: BP 141/68; PULSE 79; RESP 18; TEMP 36.6; O2SAT 96
[2019-07-06] MEDS: Lisinopril 5 MG Tablet PO (21:40)
[2019-07-07] MEDS: Enoxaparin 40 MG/0.4 ML Syringe SC (05:09)
[2019-07-07] MEDS: Ipratropium Bromide 0.06% NASAL SPRAY 2 SPRAY NASAL ×3 (05:09→20:50)
[2019-07-07 05:44] LABS: Hematocrit 36.7 % (40-54); Hemoglobin 12.1 g/dL (13.0-16.5); Mean Corpuscular Volume 90.8 fL (80-94); Mean Platelet Vol. 8.3 fl (6.2-12.0); Platelet Count 193 K/mm3 (150-450); RBC Distribution Width CV 13.7 % (11.6-14.6); RBC Distribution Width SD 45.4 fl (35.1-43.9); Red Blood Count 4.04 M/mm3 (4.6-6.2); White Blood Count 9.1 K/mm3 (4.4-11.0)
[2019-07-07 06:18] LABS: Anion Gap 6 (5-15); BUN 16 mg/dL (7-18); BUN/Creat Ratio 20.4 RATIO (10-20); Calcium,Total 8.5 mg/dL (8.5-10.1); Chloride 106 mmol/L (98-107); Creatinine, Serum 0.79 mg/dL (0.70-1.30); EST Glomerular Filtration Rate 109 mL/min (>60); Est Glom Filt Rate - Afr Amer 131 mL/min (>60); Estimated Creatinine Clearance 105.65 ml/min; Glucose 104 mg/dL (74-106); Potassium 4.1 mmol/L (3.5-5.1); Sodium Level 137 mmol/L (136-145)
[2019-07-07] MEDS: guaiFENesin 600 MG Tablet PO ×2 (07:45→20:51)
[2019-07-07] MEDS: Lisinopril 10 MG Tablet PO (07:45)
[2019-07-07] MEDS: Famotidine 20 MG Tablet PO ×2 (07:45→20:51)
[2019-07-07] MEDS: amLODIPine 10 MG Tablet PO (07:45)
[2019-07-07] MEDS: dexAMETHasone 4 MG Tablet 2 MG PO ×3 (07:45→16:56)
[2019-07-07 09:16] VITALS: BP 107/71; PULSE 59; RESP 16; TEMP 36.4; O2SAT 97
--- NOTE | 2019-07-07 09:49 | CASEMGMT ---
Social Work Spoke with patient to discuss DC plans. Pt is ready to DC home 07/10 and f/u with [facility] outpatient ST. Mother to assist with transportation. Pt to purchase a cane. Pt doing well with reframing outlook on life and staying positive. Pt expressed praise for RU staff. Plan: DC home with daughter 07/10 with [facility] outpatient . JAYE MoranW
[2019-07-07] MEDS: Multivitamins,Therapeutic Tablet 1 TABLET PO (11:43)
--- NOTE | 2019-07-07 17:51 | PCM.PN.BLA ---
Progress Note Afebrile Heart rate and blood pressure are within normal limits. He is maintaining appropriate oxygen saturation on room air. Good oral intake. All labs from today was personally reviewed. Hemoglobin is stable at 12.1. White blood cell count and platelets are within normal limits. BMP shows a BUN of 16 and a creatinine of 0.79 with normal electrolytes. He still has an occasional cough. The postnasal drainage and cough at night is much improved with the addition of the Atrovent nasal spray to his drug regimen. He denies shortness of breath. He tells me his mother has asthma. Bryant admits to having a cough when he goes outside into the cold air and he also coughs when he is chopping wood. He has never had PFT's. Alert, oriented X 3, NAD, pleasant and appropriate, sitting in the recliner at the bedside Lungs - scattered rhonchi and opening pops........no tight wheezing and no rales Heart - RRR, no gallop and no MM abd- soft, NT, ND, Bs's heard in all four quadrants. no calf tenderness He has some swelling in the ankles and this is more likely than not due to the Dexamethasone and the Salt tabs 5/5 strength throughout, the double vision is resolved in the left eye. He has no visual field cuts but, he still has blurry vision in the R eye and was unable to tell me how many fingers I had up when he closed the left eye Impressions 1. Debility secondary to craniotomy to resect meningioma 2. Diplopia-resolved. Still with blurry vision in the right eye. 3. Normochromic normocytic anemia more likely than not secondary to blood loss with surgery-stable 4. Pulmonary nodule-this needs to be followed with a CT scan in 6 months. 5. Hypertension-controlled...The systolic is occasionally elevated but, I do not want to adjust antihypertensives until he is off Dexamethasone for 2 weeks. 6. Tobacco dependence in remission 7. COSTA-wears CPAP at home but has not been wearing it in the hospital secondary to cough and postnasal drainage 8. Asthma suspected-his mother has asthma and he has a dry cough precipitated by chopping wood and cold air and now has scattered coarse wheezing. We will try a inhaler to see if the wheezing and air exchange improve 9. pseudobulbar affect with labile emotions - due to recent craniotomy - no tx necessary at this time Code Visit Inpatient E&M: [id number] Subs Hosp L2
[2019-07-07 20:33] VITALS: BP 144/87; PULSE 71; RESP 18; TEMP 36.6; O2SAT 97
[2019-07-07] MEDS: Lisinopril 5 MG Tablet PO (20:51)
[2019-07-08] MEDS: Enoxaparin 40 MG/0.4 ML Syringe SC (05:00)
[2019-07-08] MEDS: Ipratropium Bromide 0.06% NASAL SPRAY 2 SPRAY NASAL ×3 (05:00→20:23)
[2019-07-08 07:00] VITALS: BP 128/88; PULSE 73; RESP 16; TEMP 36.3; O2SAT 95
[2019-07-08 07:20] VITALS: PULSE 65; RESP 18
[2019-07-08] MEDS: Albuterol 2.5 MG/3 ML VIAL.NEB. INHALATION ×3 (07:20→18:42)
[2019-07-08] MEDS: guaiFENesin 600 MG Tablet PO ×2 (08:44→20:23)
[2019-07-08] MEDS: amLODIPine 10 MG Tablet PO (08:44)
[2019-07-08] MEDS: dexAMETHasone 4 MG Tablet 2 MG PO ×3 (08:44→17:20)
[2019-07-08] MEDS: Lisinopril 10 MG Tablet PO (08:44)
[2019-07-08] MEDS: Famotidine 20 MG Tablet PO ×2 (08:44→20:23)
--- NOTE | 2019-07-08 12:00 | PCM.PN.BLA ---
Progress Note Afebrile Vital signs stable Maintaining appropriate oxygen saturation on room air Started DuoNeb aerosols every 4 hours while awake yesterday. Patient stated he has less cough and he feels like he can take a deeper breath. He does state that the aerosols make him kind of shaky. Alert, oriented, no apparent distress Lungs-better air exchange today but still with coarse rhonchi in all lung estrada. Not tachypneic, no conversational dyspnea. There is symmetric chest expansion. There are no rales. Heart-regular rate and rhythm Impressions 1. bronchospasm - I suspect he may have asthma - his mother has asthma. Will continue the aerosols. Change the tx to Albuterol and DC the Duonebs to see if the shakiness is better. Will need follow up with pulmonary for PFT's following DC. Plan DC for 07/10 Code Visit Inpatient E&M: 85123 Subs Hosp L1
[2019-07-08] MEDS: Multivitamins,Therapeutic Tablet 1 TABLET PO (12:09)
[2019-07-08 15:10] VITALS: PULSE 67; RESP 18
--- NOTE | 2019-07-08 15:57 | CHAPLAIN ---
Type of Pastoral Visit _x__ Initial Visit ___ Follow-up Visit ___ On-call Visit ___ General Patient Visit ___ Spiritual Assessment ___ Family Conference ___ Bereavement ___ Rapid Response ___ Code Blue ___ Other (describe below) Pastoral Care Referral From _x__ Patient ___ Family ___ Nurse ___ Physician ___ Blood Bank Technologist ___ Bakery Pastry Internship _x__ Other (describe below) Sacrament/Intervention _x__ Active listening ___ Anointing ___ Yarsani ___ Bereavement ___ Communion _x__ Shiela exploration ___ _x__ Life review _x__ Prayer ___ Reconciliation ___ Sacrament of Sick _x__ Supportive presence ___ Wedding ___ Other (describe below) Pastoral Comments very talkative patient; makes several statement about learning lessons, making priorities, returning to God, slowing down and processing those insights and decisions;
[2019-07-08 18:42] VITALS: PULSE 86; RESP 16
[2019-07-08 20:09] VITALS: BP 119/78; PULSE 97; RESP 18; TEMP 36.4; O2SAT 94
[2019-07-08] MEDS: Lisinopril 5 MG Tablet PO (21:11)
[2019-07-09] MEDS: Enoxaparin 40 MG/0.4 ML Syringe SC (04:42)
[2019-07-09] MEDS: Ipratropium Bromide 0.06% NASAL SPRAY 2 SPRAY NASAL ×3 (05:41→20:47)
[2019-07-09 06:30] VITALS: PULSE 88; RESP 20
[2019-07-09] MEDS: Albuterol 2.5 MG/3 ML VIAL.NEB. INHALATION (06:30)
[2019-07-09] MEDS: Famotidine 20 MG Tablet PO ×2 (07:59→20:47)
[2019-07-09] MEDS: Lisinopril 10 MG Tablet PO (08:00)
[2019-07-09] MEDS: guaiFENesin 600 MG Tablet PO ×2 (08:00→20:47)
[2019-07-09] MEDS: dexAMETHasone 4 MG Tablet 2 MG PO ×3 (08:00→17:16)
[2019-07-09] MEDS: amLODIPine 10 MG Tablet PO (08:00)
[2019-07-09 08:08] VITALS: BP 125/71; PULSE 88; RESP 20; TEMP 36.4; O2SAT 94
[2019-07-09] MEDS: Multivitamins,Therapeutic Tablet 1 TABLET PO (12:15)
[2019-07-09 19:23] VITALS: BP 113/71; PULSE 76; RESP 16; TEMP 36.2; O2SAT 97
[2019-07-09] MEDS: Lisinopril 5 MG Tablet PO (20:46)
[2019-07-10 06:33] VITALS: PULSE 59; RESP 16; O2SAT 97
[2019-07-10] MEDS: Albuterol 2.5 MG/3 ML VIAL.NEB. INHALATION (06:33)
--- NOTE | 2019-07-10 06:33 | CPS ---
RN in room after aerosol, to work with patient. PEP therapy not done at this time.
[2019-07-10] MEDS: Enoxaparin 40 MG/0.4 ML Syringe SC (06:41)
[2019-07-10] MEDS: Ipratropium Bromide 0.06% NASAL SPRAY 2 SPRAY NASAL ×2 (06:41→13:22)
[2019-07-10] MEDS: amLODIPine 10 MG Tablet PO (07:48)
[2019-07-10] MEDS: Famotidine 20 MG Tablet PO (07:48)
[2019-07-10] MEDS: dexAMETHasone 4 MG Tablet 2 MG PO ×2 (07:48→16:01)
[2019-07-10] MEDS: guaiFENesin 600 MG Tablet PO (07:48)
[2019-07-10] MEDS: Lisinopril 10 MG Tablet PO (07:49)
[2019-07-10 08:12] VITALS: BP 119/67; PULSE 62; RESP 16; TEMP 36.5; O2SAT 96
--- NOTE | 2019-07-10 10:43 | PCM.DC ---
- Discharge Diagnoses Current Active Problems: Current Active and Chronic Problems S/P craniotomy (Acute) History of resection of meningioma (Acute) Pulmonary nodule (Acute) Morbid obesity (Acute) COSTA (obstructive sleep apnea) (Acute) Tobacco dependence (Acute) You will use the following diet at home:: Regular Your food should be the consistency of: Regular Your liquids should be the consistency of: Regular/Thin Discharge Activity: May Not Drive - until your vision is better....ask the opthamologist when it would be safe to drive, - - Make sure that you are getting some exercise.......remember you have been doing 3 hours of therapy a day. Don't slack off! Call your doctor if your incision/area has: Increased Redness, Foul Smelling Discharge, Swelling at the incision site Call your doctor if you observe: Fever of 101 or Higher, Shortness of breath, Dizziness, Fainting spells, Chest pain, Calf discomfort, Uncontrolled pain Additional Instructions: 1. You have lost 16 pounds in the rehab unit. Some of this is water but, 16 LBS is great! Keep up the healthy choices you have been making with your meals. 2. Asthma is often inherited. I think the cough you get when outside in the cold air and when cutting wood may be due to asthma. You definitely have been wheezing in the rehab unit and the aerosol treatments have increased the air exchange and improved the wheezing and cough. Unfortunately, they give you the shakes. Beatriz is making you an appt for you to see the analysis consultant (Dr. Mckeon) to have some pulmonary function tests done. Start wearing your CPAP again at home.......it will help you sleep better and in the long run it prevents the BP's in your lungs from increasing and causing chronic shortness of breath. 3. There is a small nodule in your lung. This needs to be followed up since you have been a smoker. you have had a few smoke free weeks.......I hope you do not have any cravings when you are home to start smoking again. If you do please keep in mind that we have a smoking cessation program at the hospital. The number to call if you need help is [phone]. You need to have a follow up CT scan of the chest in 3-6 months....Dr. Mckeon can arrange this for you. 4. Getting that tumor out has given you a new life. Experience is the best teacher.......commit to living a healthy life. It has been a pleassure to meet you Bryant. I hope your experience while at the rehab unit was a positive one and Thank you for sharing your thoughts on what really helped you when you were with us......I shared your thoughts with the staff. Take care and have a GOOD LIFE! Pending Tests on Discharge: none Allergies/Adverse Reactions: Allergies No Known Allergies Allergy (Verified 06/15/19 16:27) Medications to take at Discharge Amlodipine [Norvasc] 10 mg PO DAILY 06/15/19 Cholecalciferol (Vitamin D3) [Vitamin D3] 2,000 unit PO DAILY 06/15/19 Multivitamins,Therapeutic [Multivitamin] 1 tab PO DAILY 06/15/19 Famotidine [Pepcid] 20 mg PO BID 06/26/19 Ondansetron [Zofran Odt] 4 mg PO Q8H PRN PRN 06/26/19 Acetaminophen [Tylenol Tablet] 650 mg PO Q4H PRN PRN tablet 07/10/19 Dexamethasone [Decadron] 2 mg PO UD #14 tab 07/10/19 Guaifenesin [Mucinex] 1,200 mg PO BID #20 tbmp.12hr 07/10/19 Ipratropium [place] 0.06% [ATROVENT NASAL SPRAY] 2 spray NASAL TID PRN PRN #1 nasal.sry 07/10/19 Lisinopril [Zestril] 10 mg PO UD #45 tab 07/10/19 The following prescriptions were given: Ipratropium [place] 0.06% [ATROVENT NASAL SPRAY] 2 spray NASAL TID PRN PRN #1 nasal.sry PRN Reason: post nasal drip Transmission Status: Pending to [facility] Dexamethasone [Decadron] 2 mg PO UD #14 tab Transmission Status: Pending to [facility] Guaifenesin [Mucinex] 1,200 mg PO BID #20 tbmp.12hr Transmission Status: Pending to [facility] Lisinopril [Zestril] 10 mg PO UD #45 tab Transmission Status: Pending to [facility] Primary Care Physician: Rodríguez Avery MD [Primary Care Provider] - Test Results: Test results from this visit will be discussed in further detail at your follow-up appointment, if applicable. Please Follow Up With: Rodríguez Avery MD Please Follow Up With: Dorie Avila MD Please Follow Up With: Spenser Mckeon MD Proposed Discharge Date: 07/10/19
[2019-07-10] MEDS: Multivitamins,Therapeutic Tablet 1 TABLET PO (11:10)
--- NOTE | 2019-07-10 11:19 | PCM.DC.SUM ---
Discharge Date and Diagnosis - Problem List Patient Problems: Active and Suspected Problems Pseudobulbar affect (Acute) Normochromic normocytic anemia (Acute) Asthma (Suspected) S/P craniotomy (Acute) History of resection of meningioma (Acute) Pulmonary nodule (Acute) Morbid obesity (Acute) COSTA (obstructive sleep apnea) (Acute) Tobacco dependence (Acute) Date of Admission: 06/26/19 Date of Discharge: 07/10/19 - Primary Discharge Diagnosis Active and Suspected Problems Debility secondary to craniotomy for resection of meningioma History of craniotomy with resection of meningioma (Acute) -06/17/2019 Pseudobulbar affect (Acute) as a result of craniotomy/swelling of brain Normochromic normocytic anemia (Acute) more likely than not due to blood loss with surgery Asthma (Suspected) Pulmonary nodule (Acute) - 6 mm in the left lung - Secondary Discharge Diagnosis Chronic Problems Hypertension (Chronic) COSTA Morbid obesity (Acute) Tobacco dependence Hospital Course and Treatment Imaging Results: Laboratory Tests 07/07/19 07/07/19 06/28/19 Range/Units 05:27 05:27 05:30 WBC 9.1 (4.4-11.0) K/mm3 RBC 4.04 L (4.6-6.2) M/mm3 Hgb 12.1 L (13.0-16.5) g/dL Hct 36.7 L (40-54) % MCV 90.8 (80-94) fL MCH 30.0 (27.0-32.0) pg MCHC 33.0 (32-36) g/dL RDW Std Deviation 45.4 H (35.1-43.9) fl RDW Coeff of Lori 13.7 (11.6-14.6) % Plt Count 193 (150-450) K/mm3 MPV 8.3 (6.2-12.0) fl Sodium 137 140 (136-145) mmol/L Potassium 4.1 3.8 (3.5-5.1) mmol/L Chloride 106 107 (98-107) mmol/L Carbon Dioxide 25.0 30.0 (21.0-32.0) mmol/L Anion Gap 6 3 L (5-15) BUN 16 14 (7-18) mg/dL Creatinine 0.79 0.75 (0.70-1.30) mg/dL Estim Creat Clear Calc 105.65 111.29 ml/min Est GFR (MDRD) Af Amer 131 139 (>60) mL/min Est GFR (MDRD) Non-Af 109 115 (>60) mL/min BUN/Creatinine Ratio 20.4 H 18.7 (10-20) RATIO Glucose 104 109 H (74-106) mg/dL Calcium 8.5 8.1 L (8.5-10.1) mg/dL Phosphorus 3.1 (2.5-4.9) mg/dL Magnesium 2.5 (1.6-2.6) mg/dL Total Bilirubin 0.70 (0.20-1.00) mg/dL AST 57 H (15-37) U/L ALT 139 H (16-61) U/L Alkaline Phosphatase 69 (45-117) U/L Total Protein 6.1 L (6.4-8.2) g/dL Albumin 2.8 L (3.2-5.0) g/dL Globulin 3.3 (2.2-4.2) g/dL Albumin/Globulin Ratio 0.8 L (0.9-2.4) RATIO TSH 0.72 (0.358-3.74) uIU/mL Free T4 0.97 (0.76-1.46) ng/dL 06/28/19 Range/Units 05:30 WBC 10.1 (4.4-11.0) K/mm3 RBC 4.17 L (4.6-6.2) M/mm3 Hgb 12.4 L (13.0-16.5) g/dL Hct 37.6 L (40-54) % MCV 90.2 (80-94) fL MCH 29.7 (27.0-32.0) pg MCHC 33.0 (32-36) g/dL RDW Std Deviation 44.0 H (35.1-43.9) fl RDW Coeff of Lori 13.5 (11.6-14.6) % Plt Count 142 L (150-450) K/mm3 MPV 9.8 (6.2-12.0) fl Sodium (136-145) mmol/L Potassium (3.5-5.1) mmol/L Chloride (98-107) mmol/L Carbon Dioxide (21.0-32.0) mmol/L Anion Gap (5-15) BUN (7-18) mg/dL Creatinine (0.70-1.30) mg/dL Estim Creat Clear Calc ml/min Est GFR (MDRD) Af Amer (>60) mL/min Est GFR (MDRD) Non-Af (>60) mL/min BUN/Creatinine Ratio (10-20) RATIO Glucose (74-106) mg/dL Calcium (8.5-10.1) mg/dL Phosphorus (2.5-4.9) mg/dL Magnesium (1.6-2.6) mg/dL Total Bilirubin (0.20-1.00) mg/dL AST (15-37) U/L ALT (16-61) U/L Alkaline Phosphatase (45-117) U/L Total Protein (6.4-8.2) g/dL Albumin (3.2-5.0) g/dL Globulin (2.2-4.2) g/dL Albumin/Globulin Ratio (0.9-2.4) RATIO TSH (0.358-3.74) uIU/mL Free T4 (0.76-1.46) ng/dL none Operations: - - Craniotomy for excision of meningioma at [facility] on 06/17/2019 Procedures: None Summary of Care Provided: The patient is a 53 year old M with a PMH of morbid obesity, obstructive sleep apnea, hypertension and tobacco dependence who was admitted to the Inpatient rehab unit at [facility] on 06/26/2019 for debility secondary to craniotomy on 06/17/2019 at [facility] for resection of a meningioma. The patient lives at home by himself and has 1 step to enter his one-story home. There is also a ramp. He was independent with ADL's, mobility and driving prior to hospitalization. He works full-time for the [employer]. Lab at admission to the hospital revealed a low hemoglobin at 12.4 with a hematocrit of 37.6 and normochromic normocytic indices. The platelet count was mildly decreased at 142,000. BMP was unremarkable. Calcium corrected for hypoalbuminemia was within normal limits. Bilirubin and alkaline phosphatase were normal. The AST and ALT were mildly elevated and I suspect this may be secondary to surgery/muscle trauma. Repeat lab on 07/07/2019 showed the hemoglobin to be stable at 12.1 and platelets were now normal at 193,000. BMP remained unremarkable. While at [facility] he had a CT scan of the chest/abd/pelvis. There was a 6 mm pulmonary nodule in the left lung and a possible renal mass. US of the kidneys did not show a mass. The nodule will need to be followed up in 6-12 months. When he initially came to us he had diplopia with the left eye and blurred vision in the right and this impaired his balance. He requested to see his radio engineer at [facility] and this was arranged. No intervention was necessary and the diplopia resolved. The radio engineer is going to see him again in July. His eyes are still changing as the swelling due to the surgery resolves. His vision improved significantly while in rehab. He has had some emotional lability/pseudobulbar affect while in the rehab unit and we explained this is normal and it will resolve, just like the changes in the vision. He also has had post nasal drainage and a productive cough. The post nasal DC improved with Atrovent nasal spray and he was able to sleep better at night. The productive cough continued and he had wheezing and diminished BS's. There were no rales. He was started on aerosol treatments and Mucinex and the air exchange improved and so did the wheezing. Unfortunately, he had shakes with the aerosols. On the day of DC he had good air exchange and a rare coarse wheeze. He was transitioned to a Albuterol MDI and was instructed in proper use by the RT. He was discharged home on 07/10/19. RX's were given for the remainder of the Dexamethasone taper. Salt tabs and Keppra were discontinued during his admission to rehab. He has had no seizure activity while in the rehab unit. Lisinopril was increased to 15 mg daily while in rehab and the BP is currently well controlled. He has not required any narcotics since 06/30/19 and he was sent home on Tylenol for pain. He was also given a RX for Mucinex, Atrovent Nasal [place] and an Albuterol inhaler. He will follow up with his PCP, Dr. Rodríguez Avery, in 1 week. An appt was also made for follow up with Dr. Mckeon for suspected asthma (there is a ) and pulmonary nodule. He will follow up with the neurosurgeon and will call the office for an appt. Vital signs on the day of discharge are temperature 97.7, pulse rate 62, blood pressure 119/67, respiratory rate 16 and he was 96% saturated on room air. PHYSICAL EXAM: GENERAL: alert, oriented X 3, Cooperative, NAD, sitting in the recliner at the bedside resting ORAL: moist mucosa, no mucosal lesions NECK: No JVD, supple, trachea midline LUNGS: symmetric chest expansion, rare coarse wheeze, much improved air exchange since the aerosol treatments were started. No rales. No conversational dyspnea, no accessory muscle use. HEART: RRR, Normal S1 and S2, no rub, no gallop, no murmur ABDOMEN: obese, soft, NT, ND, BS present, no guarding with palpation EXTREMITIES: trace ankle edema, no cyanosis, no calf tenderness, RADHA hose are in place SKIN: No rashes, no breakdown, the clive have all been removed. The skin is intact with no erythema and no discharge NEUROLOGIC: no focal neurologic deficits. PERRL, 5/5 strength throughout, intact sensation throughout PSYCH: appropriate, normal affect, pleasant....sometimes starts crying for no reason...this is happening infrequently This note was generated with [employer] dictation software. It may contain incorrect words, spelling, and punctuation that were not noted in checking the note before signing. Patient Problems: Active and Suspected Problems Pseudobulbar affect (Acute) Normochromic normocytic anemia (Acute) Asthma (Suspected) S/P craniotomy (Acute) History of resection of meningioma (Acute) Pulmonary nodule (Acute) Morbid obesity (Acute) COSTA (obstructive sleep apnea) (Acute) Tobacco dependence (Acute) - Physical Exam Vitals/I&O's: Vital Signs Temp Pulse Resp BP Pulse Ox 97.7 F L 62 16 119/67 96 07/10/19 08:12 07/10/19 08:12 07/10/19 08:12 07/10/19 08:12 07/10/19 08:12 Oxygen Delivery Method Room Air Weight: 275 lb 2.19 oz Body Mass Index (BMI) 43.0 Intake and Output for Last 24 Hours 07/08/19 07/09/19 07/10/19 23:59 23:59 23:59 Intake Total 1300 / 1300 720 / 720 Output Total 300 / 300 Balance 1000 / 1000 720 / 720 Current Medications Acetaminophen (Tylenol) 650 mg PO Q4H PRN PRN PRN Reason: Pain Score 1-10/10 Last Admin: 06/29/19 05:10 Dose: 650 mg Documented by: Albuterol Sulfate (Ventolin Hfa (Sp)) 2 puff INHALATION Q4H PRN PRN PRN Reason: wheezing/SOB Amlodipine Besylate (Norvasc) 10 mg PO DAILY [facility] Last Admin: 07/10/19 07:48 Dose: 10 mg Documented by: Bisacodyl (Dulcolax) 10 mg RECTAL .PRN X 1 PRN PRN Reason: Constipation Cholecalciferol (Vitamin D) 2,000 unit PO DAILY [facility] Last Admin: 07/10/19 07:48 Dose: 2,000 unit Documented by: [facility] Stop: 07/14/19 17:01 Last Admin: 07/10/19 07:48 Dose: 2 mg Documented by: Dexamethasone (Decadron) 2 mg PO DAILY@0800 [facility] Stop: 07/19/19 08:01 Enoxaparin Sodium (Lovenox) 40 mg SC DAILY@0600 [facility] Last Admin: 07/10/19 06:41 Dose: 40 mg Documented by: Famotidine (Pepcid) 20 mg PO BID [facility] Last Admin: 07/10/19 07:48 Dose: 20 mg Documented by: Guaifenesin (Robitussin) 5 ml PO Q4H PRN PRN PRN Reason: COUGH Last Admin: 07/05/19 07:43 Dose: 5 ml Documented by: Guaifenesin (Mucinex) 600 mg PO BID [facility] Last Admin: 07/10/19 07:48 Dose: 600 mg Documented by: Ipratropium [place] (Atrovent Nasal [place] (G)) 2 spray NASAL TID [facility] Last Admin: 07/10/19 06:41 Dose: 2 spray Documented by: Lisinopril (Zestril) 10 mg PO DAILY [facility] Last Admin: 07/10/19 07:49 Dose: 10 mg Documented by: Lisinopril (Zestril) 5 mg PO QHS [facility] Last Admin: 07/09/19 20:46 Dose: 5 mg Documented by: Magnesium Hydroxide (Milk Of Magnesia) 30 ml PO .PRN X 1 PRN PRN Reason: Constipation Multivitamins (Multivitamin) 1 tablet PO DAILY@1200 [facility] Last Admin: 07/10/19 11:10 Dose: 1 tablet Documented by: Ondansetron HCl (Zofran Odt) 4 mg PO Q8H PRN PRN PRN Reason: NAUSEA Last Admin: 06/30/19 06:05 Dose: 4 mg Documented by: Oxycodone HCl (Oxyir) 5 mg PO Q4H PRN PRN PRN Reason: Pain Score 6-10/10 Last Admin: 06/28/19 17:30 Dose: 5 mg Documented by: Senna/Docusate Sodium (Senokot-S, Melly-Colace) 2 tablet PO BID PRN PRN Reason: CONSTIPATION Discharge Activity: May Not Drive - until your vision is better....ask the opthamologist when it would be safe to drive, - - Make sure that you are getting some exercise.......remember you have been doing 3 hours of therapy a day. Don't slack off! Call your doctor if your incision/area has: Increased Redness, Foul Smelling Discharge, Swelling at the incision site Call your doctor if you observe: Fever of 101 or Higher, Shortness of breath, Dizziness, Fainting spells, Chest pain, Calf discomfort, Uncontrolled pain Home Medications: Medications to take at Discharge Amlodipine [Norvasc] 10 mg PO DAILY 06/15/19 Cholecalciferol (Vitamin D3) [Vitamin D3] 2,000 unit PO DAILY 06/15/19 Multivitamins,Therapeutic [Multivitamin] 1 tab PO DAILY 06/15/19 Famotidine [Pepcid] 20 mg PO BID 06/26/19 Ondansetron [Zofran Odt] 4 mg PO Q8H PRN PRN 06/26/19 Acetaminophen [Tylenol Tablet] 650 mg PO Q4H PRN PRN tablet 07/10/19 Dexamethasone [Decadron] 2 mg PO UD #14 tab 07/10/19 Guaifenesin [Mucinex] 1,200 mg PO BID #20 tbmp.12hr 07/10/19 Ipratropium [place] 0.06% [ATROVENT NASAL SPRAY] 2 spray NASAL TID PRN PRN #1 nasal.sry 07/10/19 Lisinopril [Zestril] 10 mg PO UD #45 tab 07/10/19 Following Prescrptions Were Given to Patient: Ipratropium [place] 0.06% [ATROVENT NASAL SPRAY] 2 spray NASAL TID PRN PRN #1 nasal.sry PRN Reason: post nasal drip Transmission Status: Pending to [facility] Dexamethasone [Decadron] 2 mg PO UD #14 tab Transmission Status: Pending to [facility] Guaifenesin [Mucinex] 1,200 mg PO BID #20 tbmp.12hr Transmission Status: Pending to [facility] Lisinopril [Zestril] 10 mg PO UD #45 tab Transmission Status: Pending to [facility] Primary Care Physician: Rodríguez Avery MD [Primary Care Provider] - Please Follow Up With: Rodríguez Avery MD Please Follow Up With: Dorie Avila MD Please Follow Up With: Spenser Mckeon MD Disposition: Home Minutes spent on discharge:: 40 Patient Condition:: Good Medical Necessity - Tobacco Use Smoking Status: Current every day smoker Tobacco Use: Cigarettes Meaningful Use Info Meaningful Use Diagnoses (Choose all that apply): None applicable Code Visit Inpatient E&M: 79702 Disch Hosp
[2019-07-10 16:15] VITALS: BP 122/70; PULSE 64; RESP 16; TEMP 36.6; O2SAT 96
--- NOTE | 2019-07-10 16:22 | NURSING ---
discharged home with family. discharge instructions, medications and appointments reviewed with pt. denies questions or concerns
== END 2019-07-10 16:20 | disposition home or self-care (01) | DRG 949 ==
PROVIDERS: Admitting Provider Internal Medicine; PCP Family Medicine; Visit Provider Internal Medicine
DX: Z48.3 Aftercare following surgery for neoplasm (principal); Z68.41 Body mass index [BMI] 40.0-44.9, adult; Z86.011 Personal history of benign neoplasm of the brain; G47.33 Obstructive sleep apnea (adult) (pediatric); I10 Essential (primary) hypertension; E66.01 Morbid (severe) obesity due to excess calories; R91.1 Solitary pulmonary nodule; F48.2 Pseudobulbar affect; H53.2 Diplopia; D64.9 Anemia, unspecified; F17.211 Nicotine dependence, cigarettes, in remission; J45.909 Unspecified asthma, uncomplicated; Z71.3 Dietary counseling and surveillance
CPT/HCPCS: 36415; 80048; 80053; 83735; 84100; 84439; 84443; 85027; 92507; 92523; 92526; 92610; 94640; 94667; 94668; 97110; 97112; 97116; 97162; 97166; 97530; 97535; 97802; 97803; 99251; G0463

== ENCOUNTER 2019-09-10 10:00 | Outpatient (RCR) | payer OTHER, SELFPAY ==
[2019-06-26 18:40] VITALS: BMI 43.0
--- NOTE | 2019-08-06 09:00 | SOAP_ITS ---
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 The Patient was accompanied by his daughter during the initial assessment, with the Patients daughter assisting in providing details in regards to his prior and current levels of functioning. Both the Patient and his daughter report an improvement to baseline / near baseline with expressive communication, with previous mild anomia and paraphasias (semantic), with the Patient reporting he got ?stuck? calling the hospital a hotel for about a week after discharge. His presentation during the interview would suggest the appearance of an individual whom is cognitively intact, though he does report (and previously demonstrated with this clinician during his inpatient admission) changes in executive functioning (processing speed, initiation / impulsivity, emotional incontinence), and inattention (overlooking details / west information). He reports that he tends to be a less than organized individual, which has been somewhat worse during the initial period post- surgical intervention, though he does report a marked reduction in cognitively complex activities so he is unsure as to how much effect this will present with return to the vocational setting. His affect appears appropriate, with the Patient appropriately joking at multiple points of the session. He reports initial visual based impairments, to include transient bilateral visual issues in which his vision would ?white out? in addition to diplopia, though this has significantly improved over the last few weeks aside from some smaller and less bold print appearing ?fuzzy? (he gave newspaper print as an example). He denies any further issues with visuospatial / visual based functioning. He denies any vocal changes. The Patient is fully ambulatory, with no difficulties with posture maintenance. 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 He is high school educated, with extensive prior management background and training. The Patient denies the presence of dysphagia, denies any overt signs and symptoms of aspiration. He denies any unintentional weight loss (in fact has gained in excess of 60lbs over the past year presumably associated with the tumor); denies changes in appetite; denies nausea, emesis. He denies trismus; denies odynophagia (pain during swallow). He denies xerostomia (dry mouth) or diurnal sialorrhea (drooling during the daytime). He denies hypogeusia (reduced taste), dysgeusia (abnormal / unpleasant taste), ageusia (absence of taste), or hyposmia (reduced smell). He denies any issues with reflux / heartburn, globus sensation, substernal discomfort, feelings of bolus stasis. Overall he denies suboptimal intake behaviors (tachyphagia, bolus bolting, or aerophagia aside from a few instances of post prandial throat clearing with faster ingestion, though per his description this does not sound abnormal. He denies any current or previous issues with aspiration related pulmonary complications, to include pneumonia, bronchitis, or unexplained asthma symptoms. 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 PREVIOUS MODIFIED BARIUM SWALLOW STUDY: None ADDITIONAL OBJECTIVE ASSESSMENT RESULTS: 06/15/2018 MRI revealed findings favoring a neoplasm such as meningioma; extent of edema implies an aggressive/atypical lesion; lobular extra-axial mass along the midline floor of the anterior cranial fossa, extending between the cerebral hemispheres and exerting mass effect on adjacent structures; lesion may extend through the cribriform plate; severe associated vasogenic edema involving the anterior aspects of both cerebral hemispheres with compression of the frontal horns of the lateral ventricles. 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 FUNCTIONAL STATUS ASSESSMENT RESULTS: REHMAN INDEX OF INDEPENDENCE IN ACTIVITIES OF DAILY LIVIN/6 BATHIN DRESSIN TOILETIN TRANSFERRIN CONTINENCE: 1 FEEDIN JOSHUA-WAGNER INSTRUMENTAL ACTIVITIES OF DAILY LIVING SCALE (IADL): 5/8 ABILITY TO USE THE TELEPHONE: 1 SHOPPIN FOOD PREPARATION: 1 HOUSEKEEPIN LAUNDRY: 1 MODE OF TRANSPORTATION: 0 RESPONSIBILITY FOR OWN MEDICATION: 0 ABILITY TO HANDLE FINANCES: 0 FUNCTIONAL ASSESSMENT OF CANCER THERAPY ? COGNITIVE FUNCTION (FACT-COG): PERCEIVED COGNITIVE IMPAIRMENTS: 29 COMMENTS FROM OTHERS: 12 PERCEIVED COGNITIVE ABILITIES: 22 IMPACT ON QUALITY OF LIFE: 12 TOTAL SCORE: 55 FUNCTIONAL AMBULATION CATEGORY (FAC): 5 (ambulator- independent) ORAL MOTOR / MODIFIED CRANIAL NERVE ASSESSMENT: CNV, VII, IX, X, and XII appear grossly intact; natural upper / lower dentition in good repair, no odontalgia (toothache); moist pinkish appearance to the oral mucosa without xerostomia; appropriate volitional cough intensity; no reported or observed signs or symptoms of trismus; no vocal abnormalities CLINICAL ASSESSMENT OF SWALLOW FUNCTION (QUANTITATIVE): EDWARDO 6 FACTORS: 0 ? normal to mild (0 to 1 clinical predictors) DYSPHONIA: negative DYSARTHRIA: negative ABNORMAL GAG RESPONSE: negative ABNORMAL VOLITIONAL COUGH: negative POST PRANDIAL COUGHING: negative POST PRANDIAL VOCAL CHANGES: negative MOLINA ASSESSMENT OF SWALLOWING ABILITY (MASA): 193 (unremarkable) MASA ASPIRATION SEVERITY SCORE: 193 (unremarkable) MASA DYSPHAGIA RISK RATING: unlikely; little evidence for disorder CLINICAL ASSESSMENT OF SWALLOW FUNCTION (QUALITATIVE): ORAL PREPARATORY PHASE: sufficient mastication rate and quality; sufficient anterior oral containment during manipulation; preserved management of breathing / bolus formation ORAL TRANSITIONAL PHASE: no signs of transitional incompetence; no signs of bolus consolidation impairments; no signs or symptoms of premature posterior bolus loss; PHARYNGEAL PHASE: appropriate hyolaryngeal excursion upon digital palpation; no obvious findings suggestive of pharyngeal phase delay / dyssynchrony; no subjective signs of pharyngeal dysmotility; no subjective signs of velopharyngeal impairments; ESOPHAGEAL PHASE: esophageal phase appears unremarkable CLINICAL ASSESSMENT OF SWALLOW FUNCTION (SEVERITY GRADING): SWALLOWING PERFORMANCE SCALE (SPS): 2 (within functional limits) FUNCTIONAL ORAL INTAKE SCALE (FIOS): 7 (total oral intake with no restrictions) SUPPLEMENTARY COGNITIVE COMMUNICATION ASSESSMENT RESULTS (SCALES/PROM/RISK): EXECUTIVE SKILLS QUESTIONNAIRE (ESQ): SECTION A ? RESPONSE INHIBITION: 04/16 SECTION B ? WORKING MEMORY: SECTION C ? EMOTIONAL CONTROL: 12/14 SECTION D ? FLEXIBILITY: SECTION E ? SUSTAINED ATTENTION: 05/16 SECTION F ? TASK INITIATION: SECTION G ? PLANNING AND PRIORITIZIN/21 SECTION H ? ORGANIZATION: 10/14 SECTION I ? TIME MANAGEMENT: SECTION J? GOAL DIRECTED PERSISTENCE: SECTION K ? METACOGNITION: 05/16 * lower score = more severity COGNITIVE COMMUNICATION ASSESSMENT RESULTS (QUANTITATIVE): APHASIA SEVERITY RATING SCALE (ASRS): 5 (minimal discernible speech handicap) APRAXIA OF SPEECH RATING SCALE (ASRS-v1): 0 (not present) QUICK APHASIA BATTERY (QAB): <FORM 1A,> WORD COMPREHENSION: SENTENCE COMPREHENSION: WORD FINDIN GRAMMATICAL CONSTRUCTION: SPEECH MOTOR PROGRAMMIN REPETITION: READIN QAB OVERALL: 9.81 /10 (normal) QAB APHASIA CONNECTED SPEECH FEATURES: Reduced length and complexity of utterances: 4 (Normal) Reduced speech rate: 4 (100+ wpm) Agrammatism: 4 (normal) Paragrammatism: 4 (normal) Anomia: 3 (mild) Empty speech: 4 (normal) Semantic paraphasias: 4 (normal) Phonemic paraphasias and neologisms: 4 (normal) Self-correction: 3 (mild) Overall communication impairment4 (normal) QAB MOTOR SPEECH FEATURES: Dysarthria: 4 (normal) Apraxia of Speech: 4 (normal) FUNCTIONAL ASSESSMENT OF VERBAL REASONING & EXECUTIVE STRATEGIES (FAVRES): TASK #1: PLANNING AN EVENT ACCURACY: (raw: 2 percentile: <1st SS: 51) RATIONAL: (raw: 4 percentile: 15th SS: 69) TIME: (raw: 8 percentile: 25th SS: 91) TOTAL REASONING SUB-SKILLS: (raw: 12) TASK #2: SCHEDULING ACCURACY: (raw: 4 percentile: 17th SS: 79) RATIONAL: (raw: 5 percentile: 100th SS: 109) TIME: (raw: 14 percentile: 71st SS: 108) TOTAL REASONING SUB-SKILLS: (raw: 19) TASK #3: MAKING A DECISION ACCURACY: (raw: 5 percentile: 100th SS: 107) RATIONAL: (raw: 2 percentile: 1st SS: 25) TIME: (raw: 8 percentile: 70th SS: 110) TOTAL REASONING SUB-SKILLS: (raw: 16) TASK #4: BUILDING A CASE ACCURACY: (raw: 5 percentile: 100th SS: 106) RATIONAL: (raw: 5 percentile: 100th SS: 107) TIME: (raw: 10 percentile: 54th SS: 102) TOTAL REASONING SUB-SKILLS: (raw: 32) TOTAL TEST: ACCURACY: (raw: 16 percentile: 6th SS: 70; severity: moderate) RATIONAL: (raw: 16 percentile: 13th SS: 82; severity: minimal) TIME: (raw: 40 percentile: 55th SS: 102; severity: normal) TOTAL REASONING SUB-SKILLS: (raw: 69) COGNITIVE COMMUNICATION ASSESSMENT RESULTS (QUALITATIVE): EXECUTIVE FUNCTIONING: initial difficulties with self-initiation and changing sets, with difficulties seeking and searching for new information and conceive new ideas, stating that he is still thinking ?inside the box?; initial mild difficulties with self-inhibition and self-monitoring with noted response inhibition (ability to suppress an overlearned or nearly automatic response in favor of producing a more effortful response), with the Patient moving to the next task despite instructions without the adequate materials provided, which he did not appear to realize; initial difficulties with cognitive fluency (rapidly generating many solutions to a task) that appeared to significantly improve during the second assessment session; the above stated deficits did not appear to compromise processing speed (bradyphrenia); he does report fluctuations in emotional control, occasionally becoming quicker to frustration, though more frequently reports becoming tearful and down, this was not apparent during the assessment, though will continue to monitor; reported questionable baseline planning / organization skills per Patient, though this was less apparent throughout the assessment; appropriate goal setting, self-evaluation, self-awareness / metacognitive functioning MEMORY: noted difficulties particularly at the onset of testing during activities with more cognitively dense materials and / or more than one stimuli at the same time suggesting suboptimal divided attention / working memory; intact declarative (explicit) and nondeclarative (implicit) memory; intact immediate memory; ATTENTION: noted difficulties particularly at the onset of testing during activities with more cognitively dense materials and / or more than one stimuli at the same time suggesting suboptimal divided attention / working memory; intact focused / selective, sustained, and alternating attention VISUOSPATIAL ABILITIES: no signs of left visuospatial neglect, visual field cuts, or visuospatial abnormalities throughout the assessment; improving diplopia without transient visual abnormalities mentioned above noted during the assessment. LANGUAGE FUNCTIONING: mild occasional anomia and intermittent paraphasia (hotel for hospital) occurring in conversation before and after initial assessment; no further issues with aphasia noted; no apraxia, aprosodia, dysarthria, alexia, or agraphia VOICE: no vocal abnormalities appreciated. COMPLICATING FACTORS AND NOTABLE FINDINGS: complicating factors may include varying levels of emotional control (though this did not complicate current results); would anticipate continual improvement and achievement of functional levels of cognitive communication abilities. RECOMMENDATIONS FOR INTERVENTION: The Patient requires continued skilled speech-language intervention 1-2 times per week with a licensed speech-language pathologist targeting executive functioning skills via training and implementation of metacognitive strategy training, with considerations for Time Pressure Management (TPM) and Oglw-Vnos-Xz-Review (GPDR) strategies; and continued formal and informal assessment of the cognitive communication profile throughout the intervention cycle, with adjustments to the treatment plan as clinically indicated. No further intervention targeting dysphagia is warranted at this time. POST ASSESSMENT EDUCATION: The Results and recommendations were discussed with the Patient and the Patients family immediately following completion of the assessment, with the Patient and the Patients family verbalizing understanding and agreement with all recommendations and education provided. DIET TEXTURE RECOMMENDATIONS: Will recommend a regular textured (IDDSI: 7), thin liquid diet (IDDSI: 0) diet RECOMMENDED COMPENSATORY STRATEGIES: Reduced bolus volume / rate of ingestion, seated upright at 90 degrees during PO intake, remain upright for 30-60 minutes post meal (GERD precaution) FUNCTIONAL OUTCOMES: OUTCOME 1: the Patient will utilize compensatory executive functioning / processing strategies (with considerations for TPMT and GPDR) identified and implemented during structured therapeutic to facilitate improved cognitive processing and achievement of the highest level of safe, independent functioning with 100% accuracy over 2 consecutive sessions. OUTCOME 2: goal adjustment as needed Bharathi Robledo M.A., CCC-CADD TECHNICIAN, CBIS MBSImP Certified, LSVT Certified [facility] Speech-Language Pathology Department [email or web address]
== END 2019-09-10 19:00 | disposition home or self-care (01) ==
LOC: SP 10:00
PROVIDERS: PCP Family Medicine; Referring Provider Family Medicine; Visit Provider Family Medicine
DX: R41.844 Frontal lobe and executive function deficit (principal); R47.01 Aphasia
CPT/HCPCS: 92507; 92523

== ENCOUNTER → 2019-11-16 14:55 | Outpatient (CLI) | payer OTHER, SELFPAY ==
[2019-06-26 18:40] VITALS: BMI 43.0
[2019-11-16 18:19] LABS: Vitamin D,25 Hydroxy 48.1 ng/mL
[2019-11-16 18:25] LABS: ALB/GLOB Ratio 1.1 RATIO (0.9-2.4); AST(SGOT) 33 U/L (15-37); Alanine Aminotransfer ALT/SGPT 46 U/L (16-61); Albumin, Serum 3.9 g/dL (3.2-5.0); Alkaline Phosphatase 93 U/L (45-117); Anion Gap 8 (5-15); BUN 15 mg/dL (7-18); BUN/Creat Ratio 15.6 RATIO (10-20); Chloride 109 mmol/L (98-107); Creatinine, Serum 0.96 mg/dL (0.70-1.30); EST Glomerular Filtration Rate 86 mL/min (>60); Est Glom Filt Rate - Afr Amer 104 mL/min (>60); Globulin 3.4 g/dL (2.2-4.2); Glucose 102 mg/dL (74-106); Potassium 3.8 mmol/L (3.5-5.1); Protein, Total 7.3 g/dL (6.4-8.2); Sodium Level 142 mmol/L (136-145)
== END ==
PROVIDERS: PCP Family Medicine; Visit Provider Family Medicine
DX: I10 Essential (primary) hypertension (principal); E55.9 Vitamin D deficiency, unspecified
CPT/HCPCS: 36415; 80053; 82306

== ENCOUNTER → 2019-12-21 07:34 | Outpatient (CLI) | payer OTHER, SELFPAY ==
[2019-06-26 18:40] VITALS: BMI 43.0
--- NOTE | 2019-12-21 07:38 | CT_ITS ---
STUDY: CT CHEST WITHOUT CONTRAST REASON FOR EXAM: Male, 54 years old. NODULE FOLLOW UP RADIATION DOSAGE (If Supplied By Facility): CTDIvol = ( 19.80 ) mGy, DLP = ( 682.69 ) mGycm TECHNIQUE: Transaxial imaging was performed without the administration of intravenous contrast material. Multiplanar coronal and sagittal images were reformatted. Individualized dose optimization techniques were used for this CT. COMPARISON: None. FINDINGS: Benign appearing bilateral axillary lymph nodes. The lungs are normal. There is no demonstrated pleural abnormality. There are calcifications of the coronary arteries. There are multiple small lymph nodes within the mediastinum, which are normal in size and morphology most compatible with reactive lymph hyperplasia. Normal hilar regions. Normal unenhanced pulmonary arteries. Normal aorta arch and descending thoracic aorta. Normal osseous structures. Fatty infiltration of the liver. Findings suggestive of small gallstones. CT/Chest without Contrast IMPRESSION: The lungs are clear. Fatty infiltration of the liver. Findings suggest small gallstones. Electronically Signed: Jose Park, at 13:30 EDT , Service support ,
== END ==
PROVIDERS: PCP Family Medicine; Referring Provider Family Medicine; Visit Provider Family Medicine
DX: R91.1 Solitary pulmonary nodule (principal)
CPT/HCPCS: 71250

== ENCOUNTER → 2020-11-02 08:49 | Outpatient (CLI) | payer OTHER, SELFPAY ==
[2019-06-26 18:40] VITALS: BMI 43.0
[2020-11-02 10:14] LABS: ALB/GLOB Ratio 1.2 RATIO (0.9-2.4); AST(SGOT) 20 U/L (15-37); Alanine Aminotransfer ALT/SGPT 25 U/L (16-61); Alkaline Phosphatase 88 U/L (45-117); Anion Gap 3 (5-15); BUN 20 mg/dL (7-18); BUN/Creat Ratio 26.4 RATIO (10-20); Calcium,Total 9.4 mg/dL (8.5-10.1); Chloride 112 mmol/L (98-107); Creatinine, Serum 0.76 mg/dL (0.70-1.30); EST Glomerular Filtration Rate 113 mL/min (>60); Est Glom Filt Rate - Afr Amer 137 mL/min (>60); Globulin 3.2 g/dL (2.2-4.2); Glucose 94 mg/dL (74-106); PSA,Total - Annual Screen 0.32 ng/mL (0.00-4.00); Potassium 4.2 mmol/L (3.5-5.1); Protein, Total 7.2 g/dL (6.4-8.2); Sodium Level 145 mmol/L (136-145)
[2020-11-02 10:15] LABS: Vitamin D,25 Hydroxy 58.4 ng/mL
== END ==
PROVIDERS: PCP Family Medicine; Referring Provider Family Medicine; Visit Provider Family Medicine
DX: E55.9 Vitamin D deficiency, unspecified (principal); Z12.5 Encounter for screening for malignant neoplasm of prostate
CPT/HCPCS: 36415; 80053; 82306; 84153; G0103

== ENCOUNTER → 2021-05-10 08:37 | Outpatient (CLI) | payer OTHER, SELFPAY ==
[2021-05-10 10:14] LABS: Absolute Lymphocyte Count 1.08 X10^3/uL (0.83-4.51); Absolute Neutrophil Count 2.5 X10^3/uL (2.0-7.7); Basophil# 0.02 X10^3/uL; Basophil% 0.5 % (0-1); Eosinophil# 0.09 X10^3/uL; Eosinophils% 2.2 % (0-5); Hematocrit 47.1 % (40-54); Hemoglobin 15.6 g/dL (13.0-16.5); Lymphocyte # 1.08 X10^3/ul (0.83-4.51); Lymphocyte % 26.5 % (19-41); Mean Corp Hgb Conc 33.1 g/dL (32-36); Mean Corpuscular Hgb 30.9 pg (27.0-32.0); Mean Corpuscular Volume 93.3 fL (80-94); Mean Platelet Vol. 9.6 fl (6.2-12.0); Monocyte# 0.38 X10^3/uL; Monocyte% 9.3 % (0-10); NRBC Flagged by Analyzer 0 % (0-5); Neutrophil # 2.49 X10^3/uL (2.7-7.7); Neutrophil % 61.3 % (47-70); Platelet Count 166 K/mm3 (150-450); RBC Distribution Width CV 13.2 % (11.6-14.6); RBC Distribution Width SD 44.7 fl (35.1-43.9); Red Blood Count 5.05 M/mm3 (4.6-6.2); White Blood Count 4.1 K/mm3 (4.4-11.0)
[2021-05-10 10:37] LABS: ALB/GLOB Ratio 1.1 RATIO (0.9-2.4); AST(SGOT) 16 U/L (15-37); Alanine Aminotransfer ALT/SGPT 23 U/L (16-61); Albumin, Serum 3.7 g/dL (3.2-5.0); Alkaline Phosphatase 95 U/L (45-117); Anion Gap 2 (5-15); BUN 14 mg/dL (7-18); BUN/Creat Ratio 17.5 RATIO (10-20); Calcium,Total 9.4 mg/dL (8.5-10.1); Chloride 110 mmol/L (98-107); EST Glomerular Filtration Rate 106 mL/min (>60); Est Glom Filt Rate - Afr Amer 128 mL/min (>60); Globulin 3.3 g/dL (2.2-4.2); Glucose 100 mg/dL (74-106); Potassium 4.3 mmol/L (3.5-5.1); Sodium Level 142 mmol/L (136-145)
[2021-05-10 10:46] LABS: Vitamin D,25 Hydroxy 58.8 ng/mL
== END ==
PROVIDERS: PCP Family Medicine; Referring Provider Family Medicine; Visit Provider Family Medicine
DX: E55.9 Vitamin D deficiency, unspecified (principal); G47.33 Obstructive sleep apnea (adult) (pediatric)
CPT/HCPCS: 36415; 80053; 82306; 85025